=== PATIENT | male | born 1940 | race Caucasian/White ===

== ENCOUNTER 2021-06-21 12:09 | Inpatient (IN) | payer MEDICARE, BC ==
[2021-06-21] MEDS: Sodium Chloride 0.9% 10 ML Syringe FLUSH PRN ×2 (13:10→21:54)
[2021-06-21] MEDS ORDERED: Iopamidol 755 Mg/ML 100 ML Bottle IV ONE (13:12)
--- NOTE | 2021-06-21 15:05 | EDM.PDOC ---
ED HPI GENERAL MEDICAL PROBLEM - General Chief Complaint: Neuro Symptoms/Deficits Stated Complaint: STROKE SYMPTOMS Time Seen by Provider: 06/21/21 12:10 Source of Information: Reports: Patient History Limitations: Reports: No Limitations - History of Present Illness INITIAL COMMENTS - FREE TEXT/NARRATIVE: Patient is an 81 YO WM who presented to the ED because of slurred speech which started at 11 AM today. He was talking to his son who noticed his slurred speech and called 911. He also complains of bilateral lower extremity weakness which is nothing more than usual and he attributed it to his neuropathy. There is no headache, visual changes,motor or sensory deficits. He had a previous TIA without permanent neurologic sequelae. There is no cough or cold but have low grade fever today. No nausea,vomiting or diarrhea. - Related Data Allergies Allergy/AdvReac Type Severity Reaction Status Date / Time Penicillins Allergy Nausea Verified 06/21/21 12:37 Home Meds: Home Meds Apixaban [Eliquis] 2.5 mg BID 06/21/21 [History] Calcium Phosphate Dibas/Vit D3 [Vitamin L5-Bpnqmaq-Fucj Tablet] 1 tab BID 06/21/21 [History] Losartan/Hydrochlorothiazide [Losartan-HCTZ 100-25 MG] 1 tab DAILY 06/21/21 [History] allopurinoL [Zyloprim] 300 mg PO Q48H 06/21/21 [History] atorvaSTATin [Lipitor] 40 mg PO BEDTIME 06/21/21 [History] Past Medical History HEENT History: Reports: Impaired Vision, Other (See Below) Other HEENT History: 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, poor vision R eye Cardiovascular History: Reports: Blood Clots/VTE/DVT, High Cholesterol, Hypertension Gastrointestinal History: Reports: GERD Musculoskeletal History: Reports: Fracture, Gout Other Musculoskeletal History: R lower leg Neurological History: Reports: CVA 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 Endocrine/Metabolic History: Reports: Obesity/BMI 30+ Hematologic History: Reports: Anticoagulation Therapy, Other (See Below) Other Hematologic History: has had hi iron in past, has had autologous blood taken Oncologic (Cancer) History: Reports: Basal Cell Carcinoma, Squamous Cell Carcinoma Other Oncologic History: L arm skin CA - Infectious Disease History Infectious Disease History: Reports: Chicken Pox, Measles, Mumps - Past Surgical History Head Surgeries/Procedures: Reports: None HEENT Surgical History: Reports: Cataract Surgery, Tonsillectomy Other HEENT Surgeries/Procedures: bilat cataract GI Surgical History: Reports: Colonoscopy Musculoskeletal Surgical History: Reports: None Oncologic Surgical History: Reports: Other (See Below) Other Oncologic Surgeries/Procedures: L arm biopsy Social & Family History - Family History Family Medical History: No Pertinent Family History - Tobacco Use Tobacco Use Status *Q: Former Tobacco User Years of Tobacco use: 8 Used Tobacco, but Quit: Yes Month/Year Tobacco Last Used: 1965 - Caffeine Use Caffeine Use: Reports: None - Recreational Drug Use Recreational Drug Use: No ED ROS GENERAL - Review of Systems Review Of Systems: See Below Constitutional: Reports: Fever, Weakness HEENT: Reports: No Symptoms Respiratory: Reports: No Symptoms Cardiovascular: Reports: No Symptoms Endocrine: Reports: No Symptoms GI/Abdominal: Reports: No Symptoms : Reports: No Symptoms Musculoskeletal: Reports: No Symptoms Skin: Reports: No Symptoms Neurological: Reports: Weakness, Change in Speech Psychiatric: Reports: No Symptoms Hematologic/Lymphatic: Reports: No Symptoms ED EXAM, NEURO - Physical Exam Exam: See Below Exam Limited By: No Limitations General Appearance: Alert, No Apparent Distress Eye Exam: Bilateral Eye: PERRL Ears: Normal External Exam, Normal Canal Nose: Normal Inspection, Normal Mucosa, No Blood Throat/Mouth: Normal Inspection, Normal Lips, Normal Teeth Head Exam: Atraumatic, Normocephalic Neck: Normal Inspection, Supple, Non-Tender, Full Range of Motion Respiratory/Chest: No Respiratory Distress, Lungs Clear, Normal Breath Sounds, No Accessory Muscle Use, Chest Non-Tender Cardiovascular: Normal Peripheral Pulses, Regular Rate, Rhythm, No Edema, No Gallop, No JVD, No Murmur, No Rub GI/Abdominal: Normal Bowel Sounds, Soft, Non-Tender, No Organomegaly, No Distention, No Abnormal Bruit, No Mass Neurological: Alert, Normal Mood/Affect, Normal Dorsiflexion, CN II-XII Intact, Normal Plantar Flexion, Normal Gait, Normal Reflexes, No Motor/Sensory Deficits, Oriented x 3, Other (mild slurring of speech) #1 Interpretation EKG Date: 06/21/21 Time: 12:17 Rhythm: Other (Sinus Tach) Rate (Beats/Min): 100 [place]: Normal P-Wave: Present QRS: Normal ST-T: Normal QT: Normal IA/PQ Interval: 245 Comparison: NA - No Prior EKG EKG Interpretation Comments: Sinus Tach LAFB Prolonged IA interval Course - Vital Signs Text/Narrative:: Lab/EKG/CXR, Head and neck CTA result was reviewed and discussed with patient and his son Roc Neurology consult with Dr Negrete-stroke Neuro at [facility] who recommended for patient to be admitted to observation, echo,MRI/MRA-brain, start on Asa 325 mg daily and Lipitor 40 mg daily. Covid-positive Code Status-DNR/DNI Last Recorded V/S: Last Vital Signs Temp 37.3 C 06/22/21 07:50 Pulse 91 06/22/21 07:50 Resp 20 06/22/21 07:50 BP 141/85 H 06/22/21 07:50 Pulse Ox 95 06/22/21 07:50 - Orders/Labs/Meds Orders: Active Orders 24 hr Category Date Time Status Ang Head [CT] Stat Exams 06/21/21 13:07 Taken Ang Neck [CT] Stat Exams 06/21/21 13:08 Taken Head wo Cont [CT] Stat Exams 06/21/21 12:24 Taken Sodium Chloride 0.9% [Saline Flush] Med 06/21/21 12:24 Active 10 ml FLUSH ASDIRECTED PRN Isolation [COMM] Routine Oth 06/21/21 14:00 Ordered Saline Lock Insert [OM.PC] Routine Oth 06/21/21 12:24 Ordered EKG 12 Lead [EK] Routine Ther 06/21/21 12:24 Stop Req Medication Orders Acetaminophen (Acetaminophen 325 Mg Tab) 650 mg PO Q6H PRN PRN Reason: Pain/Fever Last Admin: 06/22/21 04:45 Dose: 650 mg Documented by: Admin: 06/21/21 21:53 Dose: 650 mg Documented by: FREDRICK Allopurinol (Allopurinol 300 Mg Tab) 300 mg PO Q48H NORMA Aspirin (Aspirin 325 Mg Tab.Ec) 325 mg PO DAILY NORMA Last Admin: 06/22/21 08:36 Dose: 325 mg Documented by: LEISA Atorvastatin Calcium (Atorvastatin 40 Mg Tab *Ptom) 40 mg PO BEDTIME NORMA Last Admin: 06/21/21 20:52 Dose: 40 mg Documented by: FREDRICK Bamlanivimab 700 mg/Etesevimab 1,400 mg/ Sodium Chloride 160 mls @ 310 mls/hr IV ONETIME ONE Stop: 06/22/21 13:30 Melatonin (Melatonin 3 Mg Tab) 6 mg PO BEDTIME NORMA (Apixaban [Eliquis] (2.5 Mg Tablet) *Ptom) 0 mg PO BID NORMA Last Admin: 06/22/21 08:36 Dose: 2.5 mg Documented by: Admin: 06/21/21 20:52 Dose: 2.5 mg Documented by: FREDRICK (Losartan/Hydrochlorothiazide [Losartan-Hctz 100- 25 Mg] *Ptom 1 tab PO DAILY NORMA Last Admin: 06/22/21 08:37 Dose: 1 tab Documented by: LEISA Sodium Chloride (Sodium Chloride 0.9% 10 Ml Syringe) 10 ml FLUSH ASDIRECTED PRN PRN Reason: Keep Vein Open Last Admin: 06/21/21 21:54 Dose: 10 ml Documented by: Admin: 06/21/21 13:10 Dose: 10 ml Documented by: TWAN Sodium Chloride (Sodium Chloride 0.9% 10 Ml Syringe) 30 ml FLUSH ASDIRECTED NORMA Labs: Laboratory Tests 06/21/21 06/21/21 06/21/21 Range/Units 12:37 12:40 12:40 WBC 5.9 (3.2-10.1) x10-3/uL RBC 4.14 (3.90-5.90) x10(6)uL Hgb 13.6 (12.9-17.7) g/dL Hct 39.9 (38.3-50.1) % MCV 96.3 (80.8-98.7) fL MCH 32.9 (27.0-33.3) pg MCHC 34.1 (28.7-35.3) g/dL RDW 14.5 (12.4-15.0) % Plt Count 161 (117-477) x10(3)uL MPV 6.4 L (6.7-11.0) fL Neut % (Auto) 81.3 H (40.3-71.8) % Lymph % (Auto) 7.0 L (15.8-45.3) % [place] % (Auto) 10.9 (5.5-15.2) % Eos % (Auto) 0.3 (0.1-6.8) % Baso % (Auto) 0.5 (0.3-3.8) % Neut # (Auto) 4.8 (1.7-6.9) x10-3/uL Lymph # (Auto) 0.4 L (0.5-4.5) x10-3/uL [place] # (Auto) 0.6 (0.0-1.2) x10-3/uL Eos # (Auto) 0.0 (0.0-0.6) x10-3/uL Baso # (Auto) 0.0 (0.0-0.3) x10-3/uL PT 11.2 H (9.0-11.1) sec INR 1.04 (1.00-1.24) APTT 28.2 (24.4-33.2) SECONDS Sodium (135-145) mmol/L Potassium (3.5-5.3) mmol/L Chloride (100-110) mmol/L Carbon Dioxide (21-32) mmol/L BUN (7-18) mg/dL Creatinine (0.70-1.30) mg/dL Est Cr Clr Drug Dosing mL/min Estimated GFR (MDRD) (>60) BUN/Creatinine Ratio (9-20) Glucose (80-116) mg/dL Calcium (8.6-10.2) mg/dL Total Bilirubin (0.1-1.3) mg/dL AST (5-25) IU/L ALT (12-36) U/L Alkaline Phosphatase (56-112) IU/L Troponin I (4.0-60.3) pg/mL Total Protein (6.0-8.0) g/dL Albumin (3.2-4.6) g/dL Globulin g/dL Albumin/Globulin Ratio SARS-CoV-2 RNA (SORAYA) Positive H (NEGATIVE) 06/21/21 06/21/21 Range/Units 12:40 12:40 WBC (3.2-10.1) x10-3/uL RBC (3.90-5.90) x10(6)uL Hgb (12.9-17.7) g/dL Hct (38.3-50.1) % MCV (80.8-98.7) fL MCH (27.0-33.3) pg MCHC (28.7-35.3) g/dL RDW (12.4-15.0) % Plt Count (117-477) x10(3)uL MPV (6.7-11.0) fL Neut % (Auto) (40.3-71.8) % Lymph % (Auto) (15.8-45.3) % [place] % (Auto) (5.5-15.2) % Eos % (Auto) (0.1-6.8) % Baso % (Auto) (0.3-3.8) % Neut # (Auto) (1.7-6.9) x10-3/uL Lymph # (Auto) (0.5-4.5) x10-3/uL [place] # (Auto) (0.0-1.2) x10-3/uL Eos # (Auto) (0.0-0.6) x10-3/uL Baso # (Auto) (0.0-0.3) x10-3/uL PT (9.0-11.1) sec INR (1.00-1.24) APTT (24.4-33.2) SECONDS Sodium 125 L (135-145) mmol/L Potassium 4.1 (3.5-5.3) mmol/L Chloride 91 L (100-110) mmol/L Carbon Dioxide 28 (21-32) mmol/L BUN 14 (7-18) mg/dL Creatinine 1.4 H (0.70-1.30) mg/dL Est Cr Clr Drug Dosing 45.97 mL/min Estimated GFR (MDRD) 49 L (>60) BUN/Creatinine Ratio 10.0 (9-20) Glucose 122 H (80-116) mg/dL Calcium 8.8 (8.6-10.2) mg/dL Total Bilirubin 1.9 H (0.1-1.3) mg/dL AST 38 H (5-25) IU/L ALT 42 H (12-36) U/L Alkaline Phosphatase 89 (56-112) IU/L Troponin I 11.6 (4.0-60.3) pg/mL Total Protein 6.6 (6.0-8.0) g/dL Albumin 3.3 (3.2-4.6) g/dL Globulin 3.3 g/dL Albumin/Globulin Ratio 1.0 SARS-CoV-2 RNA (SORAYA) (NEGATIVE) Meds: Medications Generic Name Dose Route Start Last Admin Trade Name Jony PRN Reason Stop Dose Admin Acetaminophen 650 mg 06/21/21 21:12 06/22/21 04:45 Acetaminophen 325 Mg Tab PO 650 mg Q6H PRN Administration Pain/Fever Allopurinol 300 mg 06/22/21 09:00 Allopurinol 300 Mg Tab PO Q48H NORMA Aspirin 325 mg 06/22/21 09:00 06/22/21 08:36 Aspirin 325 Mg Tab.Ec PO 325 mg DAILY NORMA Administration Atorvastatin Calcium 40 mg 06/21/21 21:00 06/21/21 20:52 Atorvastatin 40 Mg Tab *Ptom PO 40 mg BEDTIME NORMA Administration Bamlanivimab 700 mg/ 160 mls @ 310 mls/hr 06/22/21 13:00 Etesevimab 1,400 mg/ Sodium IV 06/22/21 13:30 Chloride ONETIME ONE Melatonin 6 mg 06/22/21 21:00 Melatonin 3 Mg Tab PO BEDTIME NORMA (Apixaban [Eliquis] 0 mg 06/21/21 21:00 06/22/21 08:36 2.5 Mg Tablet) *Ptom PO 2.5 mg BID NORMA Administration (Losartan/ 1 tab 06/22/21 09:00 06/22/21 08:37 Hydrochlorothiazide PO 1 tab [Losartan-Hctz 100- DAILY NORMA Administration 25 Mg] *Ptom Sodium Chloride 10 ml 06/21/21 12:24 06/21/21 21:54 Sodium Chloride 0.9% 10 Ml Syringe FLUSH 10 ml ASDIRECTED PRN Administration Keep Vein Open Sodium Chloride 30 ml 06/22/21 10:45 Sodium Chloride 0.9% 10 Ml Syringe FLUSH ASDIRECTED NORMA Discontinued Medications Generic Name Dose Route Start Last Admin Trade Name Jony PRN Reason Stop Dose Admin Aspirin 324 mg 06/21/21 15:14 06/21/21 15:45 Aspirin 81 Mg Tab.Chew PO 06/21/21 15:15 243 mg ONETIME ONE Administration Atorvastatin Calcium 40 mg 06/21/21 21:00 Atorvastatin 40 Mg Tab PO BEDTIME NORMA Iopamidol 90 ml 06/21/21 13:12 06/21/21 13:45 Iopamidol 755 Mg/Ml 100 Ml Bottle IV 06/21/21 13:13 90 ml . DIRECTED ONE Administration Departure - Departure Time of Disposition: 14:00 Disposition: Refer to Observation Condition: Good Clinical Impression: Cerebrovascular accident (CVA), COVID-19 virus infection, Hyponatremia - Discharge Information Sepsis Event Note (ED) - Evaluation Sepsis Screening Result: No Definite Risk - My Orders Last 24 Hours: My Active Orders 06/21/21 12:24 Head wo Cont [CT] Stat Sodium Chloride 0.9% [Saline Flush] 10 ml FLUSH ASDIRECTED PRN Saline Lock Insert [OM.PC] Routine EKG 12 Lead [EK] Routine 06/21/21 13:07 Ang Head [CT] Stat 06/21/21 13:08 Ang Neck [CT] Stat 06/21/21 14:00 Isolation [COMM] Routine - Assessment/Plan Last 24 Hours: My Active Orders 06/21/21 12:24 Head wo Cont [CT] Stat Sodium Chloride 0.9% [Saline Flush] 10 ml FLUSH ASDIRECTED PRN Saline Lock Insert [OM.PC] Routine EKG 12 Lead [EK] Routine 06/21/21 13:07 Ang Head [CT] Stat 06/21/21 13:08 Ang Neck [CT] Stat 06/21/21 14:00 Isolation [COMM] Routine
[2021-06-21] MEDS ORDERED: Aspirin 81 MG Tab.Chew PO ONE (15:14)
--- NOTE | 2021-06-21 15:32 | PCM.HP.2 ---
H&P History of Present Illness - General Date of Service: 06/21/21 Admit Problem/Dx: Admission Diagnosis/Problem Admission Diagnosis/Problem CVA, Cerebrovascular accident Source of Information: Patient, Provider History Limitations: Reports: No Limitations - History of Present Illness Initial Comments - Free Text/Narative: Royer presented to ER with slurred speech that started at 11 am today, he was talking to his son who noticed change in speech and called EMS. He also has bilateral lower extremity weakness which is chronic and he attributed it to his neuropathy, he also fell last week and has large bruise to right elbow. No headache, visual changes, upper limb weakness, no facial droop. He had a previous TIA without deficits. No cough, runny nose or sore throat but have low grade fever today. No nausea, vomiting or diarrhea. No dysuria, has trouble starting and stopping, urine stream is weak, which is not new. History of Hypertension on Lipitor 40 mg bedtime, Atrial Fibrillation on Eliquis 5 mg bid. In ER, NIH score was 1, CT head was negative for stroke. Spoke with [facility] Dr Negrete who recommended CTA head and neck: head was negative, neck showed bilateral carotid stenosis, Dr Negrete advised to started on Aspirin 325 mg daily and Lipitor 40 mg bedtime and get MRI brain and Echo which can be done tomorrow. Dr Negrete also advised observation admission for TIA vs CVA. Covid screen came back positive. Influenza pending. On further questioning, Royer stated his son visited on Friday, 06/17, and then Friday night started having symptoms, he was checked and found to be positive. - Related Data Allergies/Adverse Reactions: Allergies Allergy/AdvReac Type Severity Reaction Status Date / Time Penicillins Allergy Nausea Verified 06/21/21 12:37 Home Medications: Home Meds Apixaban [Eliquis] 2.5 mg BID 06/21/21 [History] Calcium Phosphate Dibas/Vit D3 [Vitamin J6-Spducwq-Pwgv Tablet] 1 tab BID 06/21/21 [History] Losartan/Hydrochlorothiazide [Losartan-HCTZ 100-25 MG] 1 tab DAILY 06/21/21 [History] allopurinoL [Zyloprim] 300 mg PO Q48H 06/21/21 [History] atorvaSTATin [Lipitor] 40 mg PO BEDTIME 06/21/21 [History] Past Medical History HEENT History: Reports: Impaired Vision, Other (See Below) Other HEENT History: 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, poor vision R eye Cardiovascular History: Reports: Blood Clots/VTE/DVT, High Cholesterol, Hypertension Gastrointestinal History: Reports: GERD Musculoskeletal History: Reports: Fracture, Gout Other Musculoskeletal History: R lower leg Neurological History: Reports: CVA 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 Endocrine/Metabolic History: Reports: Obesity/BMI 30+ Hematologic History: Reports: Anticoagulation Therapy, Other (See Below) Other Hematologic History: has had hi iron in past, has had autologous blood taken Oncologic (Cancer) History: Reports: Basal Cell Carcinoma, Squamous Cell Carcinoma Other Oncologic History: L arm skin CA - Infectious Disease History Infectious Disease History: Reports: Chicken Pox, Measles, Mumps - Past Surgical History Head Surgeries/Procedures: Reports: None HEENT Surgical History: Reports: Cataract Surgery, Tonsillectomy Other HEENT Surgeries/Procedures: bilat cataract GI Surgical History: Reports: Colonoscopy Musculoskeletal Surgical History: Reports: None Oncologic Surgical History: Reports: Other (See Below) Other Oncologic Surgeries/Procedures: L arm biopsy Social & Family History - Family History Family Medical History: No Pertinent Family History - Tobacco Use Tobacco Use Status *Q: Former Tobacco User Years of Tobacco use: 8 Used Tobacco, but Quit: Yes Month/Year Tobacco Last Used: 1965 - Caffeine Use Caffeine Use: Reports: None - Recreational Drug Use Recreational Drug Use: No H&P Review of Systems - Review of Systems: Review Of Systems: Comprehensive ROS is negative, except as noted in HPI. Exam - Exam Exam: See Below - Vital Signs Vital Signs: Last Vital Signs Temp 99.5 F 06/21/21 12:10 Pulse 108 H 06/21/21 12:10 Resp 20 06/21/21 12:10 BP 171/98 H 06/21/21 12:10 Pulse Ox 96 06/21/21 12:10 Weight: 240 lb - Exam General: Alert, Oriented, Cooperative. No: Mild Distress HEENT: PERRLA, EOMI, Hearing Intact, Mucosa Moist & [place], Posterior Pharynx Clear Neck: Supple, Trachea Midline. No: Carotid Bruit Lungs: Clear to Auscultation, Normal Respiratory Effort Cardiovascular: Regular Rate, Irregular Rhythm GI/Abdominal Exam: Normal Bowel Sounds, Soft, Non-Tender, No Distention (Male) Exam: Deferred Rectal (Males) Exam: Deferred Extremities: No Pedal Edema, Normal Capillary Refill Peripheral Pulses: 2+: Radial (L), Radial (R), Posterior Tibial (L), Posterior Tibial (R), Dorsalis Pedis (L), Dorsalis Pedis (R) Skin: Warm, Dry, Intact, Ecchymosis (Large 10 cm to posterior right arm) Neurological: Cranial Nerves Intact, Strength Equal Bilateral (bilateral sausage canner 5/ 5), Normal Speech, Normal Tone. No: Sensation Intact (decreased in BLE, states chronic) Psychiatric: Normal Affect - Patient Data Lab Results Last 24 hrs: Laboratory Results - last 24 hr 06/21/21 06/21/21 06/21/21 Range/Units 12:37 12:40 12:40 WBC 5.9 (3.2-10.1) x10-3/uL RBC 4.14 (3.90-5.90) x10(6)uL Hgb 13.6 (12.9-17.7) g/dL Hct 39.9 (38.3-50.1) % MCV 96.3 (80.8-98.7) fL MCH 32.9 (27.0-33.3) pg MCHC 34.1 (28.7-35.3) g/dL RDW 14.5 (12.4-15.0) % Plt Count 161 (117-477) x10(3)uL MPV 6.4 L (6.7-11.0) fL Neut % (Auto) 81.3 H (40.3-71.8) % Lymph % (Auto) 7.0 L (15.8-45.3) % [place] % (Auto) 10.9 (5.5-15.2) % Eos % (Auto) 0.3 (0.1-6.8) % Baso % (Auto) 0.5 (0.3-3.8) % Neut # (Auto) 4.8 (1.7-6.9) x10-3/uL Lymph # (Auto) 0.4 L (0.5-4.5) x10-3/uL [place] # (Auto) 0.6 (0.0-1.2) x10-3/uL Eos # (Auto) 0.0 (0.0-0.6) x10-3/uL Baso # (Auto) 0.0 (0.0-0.3) x10-3/uL PT 11.2 H (9.0-11.1) sec INR 1.04 (1.00-1.24) APTT 28.2 (24.4-33.2) SECONDS Sodium (135-145) mmol/L Potassium (3.5-5.3) mmol/L Chloride (100-110) mmol/L Carbon Dioxide (21-32) mmol/L BUN (7-18) mg/dL Creatinine (0.70-1.30) mg/dL Est Cr Clr Drug Dosing mL/min Estimated GFR (MDRD) (>60) BUN/Creatinine Ratio (9-20) Glucose (80-116) mg/dL Calcium (8.6-10.2) mg/dL Total Bilirubin (0.1-1.3) mg/dL AST (5-25) IU/L ALT (12-36) U/L Alkaline Phosphatase (56-112) IU/L Troponin I (4.0-60.3) pg/mL Total Protein (6.0-8.0) g/dL Albumin (3.2-4.6) g/dL Globulin g/dL Albumin/Globulin Ratio SARS-CoV-2 RNA (SORAYA) Positive H (NEGATIVE) 06/21/21 06/21/21 Range/Units 12:40 12:40 WBC (3.2-10.1) x10-3/uL RBC (3.90-5.90) x10(6)uL Hgb (12.9-17.7) g/dL Hct (38.3-50.1) % MCV (80.8-98.7) fL MCH (27.0-33.3) pg MCHC (28.7-35.3) g/dL RDW (12.4-15.0) % Plt Count (117-477) x10(3)uL MPV (6.7-11.0) fL Neut % (Auto) (40.3-71.8) % Lymph % (Auto) (15.8-45.3) % [place] % (Auto) (5.5-15.2) % Eos % (Auto) (0.1-6.8) % Baso % (Auto) (0.3-3.8) % Neut # (Auto) (1.7-6.9) x10-3/uL Lymph # (Auto) (0.5-4.5) x10-3/uL [place] # (Auto) (0.0-1.2) x10-3/uL Eos # (Auto) (0.0-0.6) x10-3/uL Baso # (Auto) (0.0-0.3) x10-3/uL PT (9.0-11.1) sec INR (1.00-1.24) APTT (24.4-33.2) SECONDS Sodium 125 L (135-145) mmol/L Potassium 4.1 (3.5-5.3) mmol/L Chloride 91 L (100-110) mmol/L Carbon Dioxide 28 (21-32) mmol/L BUN 14 (7-18) mg/dL Creatinine 1.4 H (0.70-1.30) mg/dL Est Cr Clr Drug Dosing 45.97 mL/min Estimated GFR (MDRD) 49 L (>60) BUN/Creatinine Ratio 10.0 (9-20) Glucose 122 H (80-116) mg/dL Calcium 8.8 (8.6-10.2) mg/dL Total Bilirubin 1.9 H (0.1-1.3) mg/dL AST 38 H (5-25) IU/L ALT 42 H (12-36) U/L Alkaline Phosphatase 89 (56-112) IU/L Troponin I 11.6 (4.0-60.3) pg/mL Total Protein 6.6 (6.0-8.0) g/dL Albumin 3.3 (3.2-4.6) g/dL Globulin 3.3 g/dL Albumin/Globulin Ratio 1.0 SARS-CoV-2 RNA (SORAYA) (NEGATIVE) Result Diagrams: 06/21/21 12:40 06/21/21 12:40 Sepsis Event Note - Evaluation Sepsis Screening Result: No Definite Risk - Focused Exam Vital Signs: Vital Signs Temp Pulse Resp BP Pulse Ox 06/21/21 12:10 99.5 F 108 H 20 171/98 H 96 *Q Meaningful Use (ADM) - VTE *Q VTE Mechanical Contraindications *Q: At Risk for Falls - VTE Risk Assess *Q Each Risk Factor Represents 1 Point: Obesity ( BMI > 25 kg/m2) Total Score 1 Point Risk Factors: 1 Each Risk Factor Represents 2 Points: None Total Score 2 Point Risk Factors: 0 Each Risk Factor Represents 3 Points: Age 75 Years or Greater Total Score 3 Point Risk Factors: 3 Each Risk Factor Represents 5 Points: None Total Score 5 Point Risk Factors: 0 Venous Thromboembolism Risk Factor Score *Q: 4 - Problem List (1) Slurred speech SNOMED Code(s): 174474422 ICD Code: R47.81 - SLURRED SPEECH Status: Acute Current Visit: Yes (2) TIA (transient ischemic attack) SNOMED Code(s): 336439993 ICD Code: G45.9 - TRANSIENT CEREBRAL ISCHEMIC ATTACK, UNSPECIFIED Status: Acute Current Visit: Yes (3) SARS-CoV-2 positive SNOMED Code(s): 1825949282267343 ICD Code: U07.1 - COVID-19 Status: Acute Current Visit: Yes (4) Hyponatremia SNOMED Code(s): 70064744 ICD Code: E87.1 - HYPO-OSMOLALITY AND HYPONATREMIA Status: Chronic Current Visit: Yes (5) Neuropathy SNOMED Code(s): 825079770 ICD Code: G62.9 - POLYNEUROPATHY, UNSPECIFIED Status: Chronic Current Visit: Yes (6) Atrial fibrillation SNOMED Code(s): 42749727 ICD Code: I48.91 - UNSPECIFIED ATRIAL FIBRILLATION Status: Chronic Current Visit: Yes (7) Hypertension SNOMED Code(s): 04388609 ICD Code: I10 - ESSENTIAL (PRIMARY) HYPERTENSION Status: Chronic Current Visit: Yes (8) Gout SNOMED Code(s): 18242363 ICD Code: M10.9 - GOUT, UNSPECIFIED Status: Chronic Current Visit: Yes Problem List Initiated/Reviewed/Updated: Yes Orders Last 24hrs: Active Orders 24 hr Category Date Time Status Patient Status [ADT] Routine ADT 06/21/21 15:19 Ordered Oxygen Therapy [RC] PRN Care 06/21/21 15:19 Ordered Up With Assistance [RC] ASDIRECTED Care 06/21/21 15:19 Ordered Up to Chair [RC] ASDIRECTED Care 06/21/21 15:19 Ordered VTE/DVT Education [RC] Per Unit Routine Care 06/21/21 15:19 Ordered Vital Signs [RC] Q4H Care 06/21/21 15:19 Ordered OT Evaluation and Treatment [CONS] Routine Cons 06/21/21 15:19 Ordered PT Evaluation and Treatment [CONS] Routine Cons 06/21/21 15:19 Ordered Heart Healthy Diet [DIET] Diet 06/21/21 Dinner Ordered Ang Head [CT] Stat Exams 06/21/21 13:07 Taken Ang Neck [CT] Stat Exams 06/21/21 13:08 Taken Brain wo Cont [MR] Routine Exams 06/22/21 06:00 Ordered Chest 1V Frontal [CR] Stat Exams 06/21/21 12:24 Taken Echo Comp wo Cont [US] Routine Exams 06/22/21 06:00 Ordered Head wo Cont [CT] Stat Exams 06/21/21 12:24 Taken BASIC METABOLIC PANEL,BMP [CHEM] Routine Lab 06/22/21 06:00 Ordered INFLUENZA A+B AG SCREEN [RM] Stat Lab 06/21/21 15:00 Received LIPID PANEL [CHEM] Routine Lab 06/22/21 06:00 Ordered Apixaban [Eliquis] Med 06/21/21 21:00 Ordered 2.5 mg PO BID Aspirin [Ecotrin] Med 06/22/21 09:00 Ordered 325 mg PO DAILY Losartan/Hydrochlorothiazide [Losartan-HCTZ 100-25 MG] Med 06/22/21 09:00 Ordered 1 tab PO DAILY Sodium Chloride 0.9% [Saline Flush] Med 06/21/21 12:24 Active 10 ml FLUSH ASDIRECTED PRN allopurinoL [Zyloprim] Med 06/21/21 15:30 Ordered 300 mg PO Q48H atorvaSTATin [Lipitor] Med 06/21/21 21:00 Ordered 40 mg PO BEDTIME Isolation [COMM] Routine Oth 06/21/21 14:00 Ordered Saline Lock Insert [OM.PC] Routine Oth 06/21/21 12:24 Ordered Resuscitation Status Routine Resus Stat 06/21/21 15:19 Ordered EKG 12 Lead [EK] Routine Ther 06/21/21 12:24 Stop Req Medication Orders Allopurinol (Allopurinol 300 Mg Tab) 300 mg PO Q48H NORMA Aspirin (Aspirin 325 Mg Tab.Ec) 325 mg PO DAILY NORMA Atorvastatin Calcium (Atorvastatin 40 Mg Tab) 40 mg PO BEDTIME NORMA Non-Formulary Medication (Apixaban [Eliquis]) 2.5 mg PO BID NORMA Non-Formulary Medication (Losartan/Hydrochlorothiazide [Losartan-Hctz 100-25 Mg]) 1 tab PO DAILY NORMA Sodium Chloride (Sodium Chloride 0.9% 10 Ml Syringe) 10 ml FLUSH ASDIRECTED PRN PRN Reason: Keep Vein Open Last Admin: 06/21/21 13:10 Dose: 10 ml Documented by: TWAN Assessment/Plan Comment:: 1. Admit for observation for TIA vs CVA, Hyponatremia, Covid positive. 2. TIA/slurred speech: vs CVA. Hx of atrial fibrillation on Eliquis. Occurred today at 11 am, resolved in ER. Dr. Negrete, [facility] advised CTA head/neck which was negative for stroke, bilateral carotid stenosis. MRI brain and echo tomorrow. Aspirin 325 given in ER, recommended Aspirin 325 mg daily in addition to Lipitor 40 mg bedtime, so will continue his home medications. Lipid panel, BMP tomorrow. 3. Covid Positive: low grade fever, Oxygen 96% on room air. Positive contact on 06/17. He is vaccinated. Droplet isolation. Influenza pending. 4. Hyponatremia: 125, last sodium in clinic was 133 2 months ago and 128 a year ago. He is on Losartan/HCTZ. 5. Fall/neuropathy: PT/OT evaluate & treat. 6. Atrial fibrillation/Hx of DVT: Eliquis 5 mg bid. 7. Diet: Heart Healthy. 8. Activity: up with assistance & chair. 9. DVT prophylaxis: Eliquis & Aspirin. 10. CODE STATUS: DNR/DNI. 11. Discharge planning: anticipate 24-48 hours observation, discharge home with his . - Mortality Measure Prognosis:: Poor
--- NOTE | 2021-06-21 18:11 | CR ---
INDICATION: CVA, slurred speech. CHEST, ONE VIEW: An AP portable upright view of the chest was obtained 06/21/21 - no comparisons. The heart appears prominent in size, but is not grossly enlarged. The aorta is tortuous with minimal calcification near the arch. Overlying EKG leads are noted. Somewhat heavy markings are noted, most likely fibrotic in nature, without consolidating pneumonia or effusion identified. IMPRESSION: No acute process. MTDD
[2021-06-21] MEDS: atorvaSTATin 40 MG Tab *PTOM PO SCH (20:52)
[2021-06-21] MEDS: APIXABAN 2.5 MG PO SCH (20:52)
[2021-06-21] MEDS ORDERED: atorvaSTATin 40 MG Tab PO SCH (21:00)
[2021-06-21] MEDS: Acetaminophen 325 MG Tab PO PRN (21:53)
[2021-06-22] MEDS: Acetaminophen 325 MG Tab PO PRN ×3 (04:45→21:20)
[2021-06-22] MEDS: Aspirin 325 MG Tab.EC PO SCH (08:36)
[2021-06-22] MEDS: APIXABAN 2.5 MG PO SCH ×2 (08:36→20:01)
[2021-06-22] MEDS: LOSARTAN PO SCH (08:37)
[2021-06-22] MEDS: HYDROCHLOROTHIAZIDE PO SCH (08:37)
--- NOTE | 2021-06-22 09:20 | PCM.PN ---
- General Info Date of Service: 06/22/21 Subjective Update: Royer was admitted last night for concern for stroke. He presented to the ER with weakness and some speech disturbance. Initial workup for brain was negative, however in consultation with neurology, he has an MRI that this morning. He complains of insomnia, decreased appetite and strength. He needs 2- person support ambulation. - Review of Systems General: Reports: Weakness HEENT: Reports: No Symptoms Pulmonary: Reports: No Symptoms Cardiovascular: Reports: No Symptoms Gastrointestinal: Reports: No Symptoms Genitourinary: Reports: No Symptoms Musculoskeletal: Reports: No Symptoms Skin: Reports: No Symptoms Neurological: Reports: No Symptoms Psychiatric: Reports: No Symptoms - Patient Data Vitals - Most Recent: Last Vital Signs Temp 98.8 F 06/22/21 05:15 Pulse 83 06/22/21 04:00 Resp 16 06/22/21 04:00 BP 159/93 H 06/22/21 04:00 Pulse Ox 95 06/22/21 04:00 Weight - Most Recent: 100.062 kg Lab Results Last 24 Hours: Laboratory Results - last 24 hr 06/21/21 06/21/21 06/21/21 Range/Units 12:37 12:40 12:40 WBC 5.9 (3.2-10.1) x10-3/uL RBC 4.14 (3.90-5.90) x10(6)uL Hgb 13.6 (12.9-17.7) g/dL Hct 39.9 (38.3-50.1) % MCV 96.3 (80.8-98.7) fL MCH 32.9 (27.0-33.3) pg MCHC 34.1 (28.7-35.3) g/dL RDW 14.5 (12.4-15.0) % Plt Count 161 (117-477) x10(3)uL MPV 6.4 L (6.7-11.0) fL Neut % (Auto) 81.3 H (40.3-71.8) % Lymph % (Auto) 7.0 L (15.8-45.3) % [place] % (Auto) 10.9 (5.5-15.2) % Eos % (Auto) 0.3 (0.1-6.8) % Baso % (Auto) 0.5 (0.3-3.8) % Neut # (Auto) 4.8 (1.7-6.9) x10-3/uL Lymph # (Auto) 0.4 L (0.5-4.5) x10-3/uL [place] # (Auto) 0.6 (0.0-1.2) x10-3/uL Eos # (Auto) 0.0 (0.0-0.6) x10-3/uL Baso # (Auto) 0.0 (0.0-0.3) x10-3/uL PT 11.2 H (9.0-11.1) sec INR 1.04 (1.00-1.24) APTT 28.2 (24.4-33.2) SECONDS Sodium (135-145) mmol/L Potassium (3.5-5.3) mmol/L Chloride (100-110) mmol/L Carbon Dioxide (21-32) mmol/L BUN (7-18) mg/dL Creatinine (0.70-1.30) mg/dL Est Cr Clr Drug Dosing mL/min Estimated GFR (MDRD) (>60) BUN/Creatinine Ratio (9-20) Glucose (80-116) mg/dL Calcium (8.6-10.2) mg/dL Total Bilirubin (0.1-1.3) mg/dL AST (5-25) IU/L ALT (12-36) U/L Alkaline Phosphatase (56-112) IU/L Troponin I (4.0-60.3) pg/mL Total Protein (6.0-8.0) g/dL Albumin (3.2-4.6) g/dL Globulin g/dL Albumin/Globulin Ratio Triglycerides (15-150) mg/dL Cholesterol (50-200) mg/dL LDL Cholesterol Direct (60-130) mg/dL HDL Cholesterol (40-75) mg/dL Cholesterol/HDL Ratio (0-5) SARS-CoV-2 RNA (SORAYA) Positive H (NEGATIVE) 06/21/21 06/21/21 06/22/21 Range/Units 12:40 12:40 06:30 WBC (3.2-10.1) x10-3/uL RBC (3.90-5.90) x10(6)uL Hgb (12.9-17.7) g/dL Hct (38.3-50.1) % MCV (80.8-98.7) fL MCH (27.0-33.3) pg MCHC (28.7-35.3) g/dL RDW (12.4-15.0) % Plt Count (117-477) x10(3)uL MPV (6.7-11.0) fL Neut % (Auto) (40.3-71.8) % Lymph % (Auto) (15.8-45.3) % [place] % (Auto) (5.5-15.2) % Eos % (Auto) (0.1-6.8) % Baso % (Auto) (0.3-3.8) % Neut # (Auto) (1.7-6.9) x10-3/uL Lymph # (Auto) (0.5-4.5) x10-3/uL [place] # (Auto) (0.0-1.2) x10-3/uL Eos # (Auto) (0.0-0.6) x10-3/uL Baso # (Auto) (0.0-0.3) x10-3/uL PT (9.0-11.1) sec INR (1.00-1.24) APTT (24.4-33.2) SECONDS Sodium 125 L 129 L (135-145) mmol/L Potassium 4.1 3.7 (3.5-5.3) mmol/L Chloride 91 L 92 L (100-110) mmol/L Carbon Dioxide 28 28 (21-32) mmol/L BUN 14 18 (7-18) mg/dL Creatinine 1.4 H 1.6 H (0.70-1.30) mg/dL Est Cr Clr Drug Dosing 45.97 40.23 mL/min Estimated GFR (MDRD) 49 L 42 L (>60) BUN/Creatinine Ratio 10.0 11.3 (9-20) Glucose 122 H 100 (80-116) mg/dL Calcium 8.8 8.5 L (8.6-10.2) mg/dL Total Bilirubin 1.9 H (0.1-1.3) mg/dL AST 38 H (5-25) IU/L ALT 42 H (12-36) U/L Alkaline Phosphatase 89 (56-112) IU/L Troponin I 11.6 (4.0-60.3) pg/mL Total Protein 6.6 (6.0-8.0) g/dL Albumin 3.3 (3.2-4.6) g/dL Globulin 3.3 g/dL Albumin/Globulin Ratio 1.0 Triglycerides 26 (15-150) mg/dL Cholesterol 79 (50-200) mg/dL LDL Cholesterol Direct 22 L (60-130) mg/dL HDL Cholesterol 60 (40-75) mg/dL Cholesterol/HDL Ratio 1.3 (0-5) SARS-CoV-2 RNA (SORAYA) (NEGATIVE) Arnie Results Last 24 Hours: Microbiology 06/21/21 15:00 Influenza Type A Antigen Screen - Final Nasopharyngeal Swab NEGATIVE INFLUENZA A VIRUS AG REFERENCE RANGE: NEGATIVE Influenza Type B Antigen Screen - Final NEGATIVE INFLUENZA B VIRUS AG REFERENCE RANGE: NEGATIVE Med Orders - Current: Current Medications Acetaminophen (Acetaminophen 325 Mg Tab) 650 mg PO Q6H PRN PRN Reason: Pain/Fever Last Admin: 06/22/21 04:45 Dose: 650 mg Documented by: Allopurinol (Allopurinol 300 Mg Tab) 300 mg PO Q48H [facility] Aspirin (Aspirin 325 Mg Tab.Ec) 325 mg PO DAILY [facility] Last Admin: 06/22/21 08:36 Dose: 325 mg Documented by: Atorvastatin Calcium (Atorvastatin 40 Mg Tab *Ptom) 40 mg PO BEDTIME [facility] Last Admin: 06/21/21 20:52 Dose: 40 mg Documented by: (Apixaban [Eliquis] (2.5 Mg Tablet) *Ptom) 0 mg PO BID [facility] Last Admin: 06/22/21 08:36 Dose: 2.5 mg Documented by: (Losartan/Hydrochlorothiazide [Losartan-Hctz 100- 25 Mg] *Ptom 1 tab PO DAILY [facility] Last Admin: 06/22/21 08:37 Dose: 1 tab Documented by: Sodium Chloride (Sodium Chloride 0.9% 10 Ml Syringe) 10 ml FLUSH ASDIRECTED PRN PRN Reason: Keep Vein Open Last Admin: 06/21/21 21:54 Dose: 10 ml Documented by: Discontinued Medications Aspirin (Aspirin 81 Mg Tab.Chew) 324 mg PO ONETIME ONE Stop: 06/21/21 15:15 Last Admin: 06/21/21 15:45 Dose: 243 mg Documented by: Atorvastatin Calcium (Atorvastatin 40 Mg Tab) 40 mg PO BEDTIME [facility] Iopamidol (Iopamidol 755 Mg/Ml 100 Ml Bottle) 90 ml IV . DIRECTED ONE Stop: 06/21/21 13:13 Last Admin: 06/21/21 13:45 Dose: 90 ml Documented by: - Exam General: Alert, Oriented HEENT: Pupils Equal Neck: Supple Lungs: Clear to Auscultation Cardiovascular: Regular Rate Neurological: No New Focal Deficit Psy/Mental Status: Alert - Patient Data Lab Results Last 24 hrs: Laboratory Results - last 24 hr 06/21/21 06/21/21 06/21/21 Range/Units 12:37 12:40 12:40 WBC 5.9 (3.2-10.1) x10-3/uL RBC 4.14 (3.90-5.90) x10(6)uL Hgb 13.6 (12.9-17.7) g/dL Hct 39.9 (38.3-50.1) % MCV 96.3 (80.8-98.7) fL MCH 32.9 (27.0-33.3) pg MCHC 34.1 (28.7-35.3) g/dL RDW 14.5 (12.4-15.0) % Plt Count 161 (117-477) x10(3)uL MPV 6.4 L (6.7-11.0) fL Neut % (Auto) 81.3 H (40.3-71.8) % Lymph % (Auto) 7.0 L (15.8-45.3) % [place] % (Auto) 10.9 (5.5-15.2) % Eos % (Auto) 0.3 (0.1-6.8) % Baso % (Auto) 0.5 (0.3-3.8) % Neut # (Auto) 4.8 (1.7-6.9) x10-3/uL Lymph # (Auto) 0.4 L (0.5-4.5) x10-3/uL [place] # (Auto) 0.6 (0.0-1.2) x10-3/uL Eos # (Auto) 0.0 (0.0-0.6) x10-3/uL Baso # (Auto) 0.0 (0.0-0.3) x10-3/uL PT 11.2 H (9.0-11.1) sec INR 1.04 (1.00-1.24) APTT 28.2 (24.4-33.2) SECONDS Sodium (135-145) mmol/L Potassium (3.5-5.3) mmol/L Chloride (100-110) mmol/L Carbon Dioxide (21-32) mmol/L BUN (7-18) mg/dL Creatinine (0.70-1.30) mg/dL Est Cr Clr Drug Dosing mL/min Estimated GFR (MDRD) (>60) BUN/Creatinine Ratio (9-20) Glucose (80-116) mg/dL Calcium (8.6-10.2) mg/dL Total Bilirubin (0.1-1.3) mg/dL AST (5-25) IU/L ALT (12-36) U/L Alkaline Phosphatase (56-112) IU/L Troponin I (4.0-60.3) pg/mL Total Protein (6.0-8.0) g/dL Albumin (3.2-4.6) g/dL Globulin g/dL Albumin/Globulin Ratio Triglycerides (15-150) mg/dL Cholesterol (50-200) mg/dL LDL Cholesterol Direct (60-130) mg/dL HDL Cholesterol (40-75) mg/dL Cholesterol/HDL Ratio (0-5) SARS-CoV-2 RNA (SORAYA) Positive H (NEGATIVE) 06/21/21 06/21/21 06/22/21 Range/Units 12:40 12:40 06:30 WBC (3.2-10.1) x10-3/uL RBC (3.90-5.90) x10(6)uL Hgb (12.9-17.7) g/dL Hct (38.3-50.1) % MCV (80.8-98.7) fL MCH (27.0-33.3) pg MCHC (28.7-35.3) g/dL RDW (12.4-15.0) % Plt Count (117-477) x10(3)uL MPV (6.7-11.0) fL Neut % (Auto) (40.3-71.8) % Lymph % (Auto) (15.8-45.3) % [place] % (Auto) (5.5-15.2) % Eos % (Auto) (0.1-6.8) % Baso % (Auto) (0.3-3.8) % Neut # (Auto) (1.7-6.9) x10-3/uL Lymph # (Auto) (0.5-4.5) x10-3/uL [place] # (Auto) (0.0-1.2) x10-3/uL Eos # (Auto) (0.0-0.6) x10-3/uL Baso # (Auto) (0.0-0.3) x10-3/uL PT (9.0-11.1) sec INR (1.00-1.24) APTT (24.4-33.2) SECONDS Sodium 125 L 129 L (135-145) mmol/L Potassium 4.1 3.7 (3.5-5.3) mmol/L Chloride 91 L 92 L (100-110) mmol/L Carbon Dioxide 28 28 (21-32) mmol/L BUN 14 18 (7-18) mg/dL Creatinine 1.4 H 1.6 H (0.70-1.30) mg/dL Est Cr Clr Drug Dosing 45.97 40.23 mL/min Estimated GFR (MDRD) 49 L 42 L (>60) BUN/Creatinine Ratio 10.0 11.3 (9-20) Glucose 122 H 100 (80-116) mg/dL Calcium 8.8 8.5 L (8.6-10.2) mg/dL Total Bilirubin 1.9 H (0.1-1.3) mg/dL AST 38 H (5-25) IU/L ALT 42 H (12-36) U/L Alkaline Phosphatase 89 (56-112) IU/L Troponin I 11.6 (4.0-60.3) pg/mL Total Protein 6.6 (6.0-8.0) g/dL Albumin 3.3 (3.2-4.6) g/dL Globulin 3.3 g/dL Albumin/Globulin Ratio 1.0 Triglycerides 26 (15-150) mg/dL Cholesterol 79 (50-200) mg/dL LDL Cholesterol Direct 22 L (60-130) mg/dL HDL Cholesterol 60 (40-75) mg/dL Cholesterol/HDL Ratio 1.3 (0-5) SARS-CoV-2 RNA (SORAYA) (NEGATIVE) Result Diagrams: 06/21/21 12:40 06/22/21 06:30 Arnie Results Last 24 hrs: Microbiology 06/21/21 15:00 Influenza Type A Antigen Screen - Final Nasopharyngeal Swab NEGATIVE INFLUENZA A VIRUS AG REFERENCE RANGE: NEGATIVE Influenza Type B Antigen Screen - Final NEGATIVE INFLUENZA B VIRUS AG REFERENCE RANGE: NEGATIVE Sepsis Event Note - Evaluation Sepsis Screening Result: No Definite Risk - Focused Exam Vital Signs: Vital Signs Temp Temp Pulse Resp BP Pulse Ox 06/22/21 05:15 98.8 F 06/22/21 04:45 99.8 F 06/22/21 04:00 99.9 F 83 16 159/93 H 95 06/22/21 00:00 98.9 F 97 16 130/82 96 06/21/21 22:23 98.9 F 06/21/21 21:53 99.9 F - Problem List & Annotations (1) H/O deep venous thrombosis SNOMED Code(s): 894037447 Code(s): Z86.718 - PERSONAL HISTORY OF OTHER VENOUS THROMBOSIS AND EMBOLISM Status: Acute Current Visit: Yes (2) Factor VIII (functional) deficiency Status: Acute Current Visit: Yes (3) On apixaban therapy SNOMED Code(s): 519559426 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 Status: Acute Current Visit: Yes (4) HLD (hyperlipidemia) SNOMED Code(s): 45255068 Code(s): E78.5 - HYPERLIPIDEMIA, UNSPECIFIED Status: Acute Current Visit: Yes (5) SARS-CoV-2 positive SNOMED Code(s): 3837957412160935 Code(s): U07.1 - COVID-19 Status: Acute Current Visit: Yes (6) Slurred speech SNOMED Code(s): 395017410 Code(s): R47.81 - SLURRED SPEECH Status: Acute Current Visit: Yes (7) Hypertension SNOMED Code(s): 93745430 Code(s): I10 - ESSENTIAL (PRIMARY) HYPERTENSION Status: Chronic Current Visit: Yes Qualifiers: Hypertension type: primary hypertension Qualified Code(s): I10 - Essential (primary) hypertension (8) Hyponatremia SNOMED Code(s): 85640595 Code(s): E87.1 - HYPO-OSMOLALITY AND HYPONATREMIA Status: Chronic Current Visit: Yes (9) Gout SNOMED Code(s): 36776555 Code(s): M10.9 - GOUT, UNSPECIFIED Status: Chronic Current Visit: Yes (10) Neuropathy SNOMED Code(s): 808428556 Code(s): G62.9 - POLYNEUROPATHY, UNSPECIFIED Status: Chronic Current Visit: Yes (11) COVID-19 SNOMED Code(s): 035537361 Code(s): U07.1 - COVID-19 Status: Acute Current Visit: Yes - Problem List Review Problem List Initiated/Reviewed/Updated: Yes - Plan Plan:: Echo is not obtainable today. We'll obtain an MRI and afternoon. In the meantime continue aspirin, and blood pressure control. Also spoken to pharmacy for possibly doing BAM infusion. For COVID infection. I will suggest transfer to inpatient, because is unable to ambulate and we need to rule out stroke.
[2021-06-22] MEDS ORDERED: Sodium Chloride 0.9% 10 ML Syringe FLUSH SCH (10:45)
[2021-06-22] MEDS ORDERED: Bamlanivimab 700 MG, ETESEVIMAB 1,400 MG in Sodium Chloride 0.9% 100 ML IV ONE (13:00)
[2021-06-22] MEDS: Sodium Chloride 0.9% 10 ML Syringe FLUSH PRN (13:45)
[2021-06-22] MEDS: Melatonin 3 MG Tab PO SCH (20:00)
[2021-06-22] MEDS: atorvaSTATin 40 MG Tab *PTOM PO SCH (20:02)
[2021-06-23] MEDS: Acetaminophen 325 MG Tab PO PRN ×2 (06:00→20:12)
[2021-06-23] MEDS: Aspirin 325 MG Tab.EC PO SCH (08:29)
[2021-06-23] MEDS: APIXABAN 2.5 MG PO SCH ×2 (08:30→20:09)
[2021-06-23] MEDS: LOSARTAN PO SCH (08:31)
[2021-06-23] MEDS: HYDROCHLOROTHIAZIDE PO SCH (08:31)
--- NOTE | 2021-06-23 09:17 | PCM.PN ---
- General Info Date of Service: 06/23/21 Subjective Update: Anurag complaints of generalized weakness, he now needs a Evita lift assist with transfers. He had an MRI of the brain that was negative for stroke. He also complains of insomnia despite melatonin last night. Functional Status: Reports: Pain Controlled, Tolerating Diet. Denies: Ambulating - Patient Data Vitals - Most Recent: Last Vital Signs Temp 99.1 F 06/23/21 06:00 Pulse 88 06/23/21 01:00 Resp 20 06/23/21 01:00 BP 91/56 L 06/23/21 01:00 Pulse Ox 97 06/23/21 01:00 Weight - Most Recent: 100.062 kg I&O - Last 24 Hours: Intake & Output 06/22/21 06/23/21 06/23/21 22:59 06:59 14:59 Output Total 300 Balance -300 Med Orders - Current: Current Medications Acetaminophen (Acetaminophen 325 Mg Tab) 650 mg PO Q6H PRN PRN Reason: Pain/Fever Last Admin: 06/23/21 06:00 Dose: 650 mg Documented by: Allopurinol (Allopurinol 300 Mg Tab) 300 mg PO Q48H [facility] Aspirin (Aspirin 325 Mg Tab.Ec) 325 mg PO DAILY [facility] Last Admin: 06/23/21 08:29 Dose: 325 mg Documented by: Atorvastatin Calcium (Atorvastatin 40 Mg Tab *Ptom) 40 mg PO BEDTIME [facility] Last Admin: 06/22/21 20:02 Dose: 40 mg Documented by: Melatonin (Melatonin 3 Mg Tab) 6 mg PO BEDTIME [facility] Last Admin: 06/22/21 20:00 Dose: 6 mg Documented by: (Apixaban [Eliquis] (2.5 Mg Tablet) *Ptom) 0 mg PO BID [facility] Last Admin: 06/23/21 08:30 Dose: 2.5 mg Documented by: (Losartan/Hydrochlorothiazide [Losartan-Hctz 100- 25 Mg] *Ptom 1 tab PO DAILY [facility] Last Admin: 06/23/21 08:31 Dose: 1 tab Documented by: Sodium Chloride (Sodium Chloride 0.9% 10 Ml Syringe) 10 ml FLUSH ASDIRECTED PRN PRN Reason: Keep Vein Open Last Admin: 06/22/21 13:45 Dose: 10 ml Documented by: Sodium Chloride (Sodium Chloride 0.9% 10 Ml Syringe) 30 ml FLUSH ASDIRECTED [facility] Last Admin: 06/22/21 14:15 Dose: 30 ml Documented by: Discontinued Medications Aspirin (Aspirin 81 Mg Tab.Chew) 324 mg PO ONETIME ONE Stop: 06/21/21 15:15 Last Admin: 06/21/21 15:45 Dose: 243 mg Documented by: Atorvastatin Calcium (Atorvastatin 40 Mg Tab) 40 mg PO BEDTIME [facility] Bamlanivimab 700 mg/Etesevimab 1,400 mg/ Sodium Chloride 160 mls @ 310 mls/hr IV ONETIME ONE Stop: 06/22/21 13:30 Last Admin: 06/22/21 13:45 Dose: 310 mls/hr Documented by: Iopamidol (Iopamidol 755 Mg/Ml 100 Ml Bottle) 90 ml IV . DIRECTED ONE Stop: 06/21/21 13:13 Last Admin: 06/21/21 13:45 Dose: 90 ml Documented by: - Exam General: Alert, Oriented, Cooperative HEENT: Pupils Equal Neck: Supple Lungs: Crackles Cardiovascular: Regular Rate GI/Abdominal Exam: Normal Bowel Sounds Extremities: Normal Inspection Neurological: No New Focal Deficit - Patient Data Result Diagrams: 06/21/21 12:40 06/22/21 06:30 Sepsis Event Note - Evaluation Sepsis Screening Result: No Definite Risk - Focused Exam Vital Signs: Vital Signs Temp Pulse Resp BP Pulse Ox 06/23/21 06:00 99.1 F 06/23/21 01:00 98.3 F 88 20 91/56 L 97 06/22/21 21:31 99.4 F - Problem List & Annotations (1) SARS-CoV-2 positive SNOMED Code(s): 7376208524349725 Code(s): U07.1 - COVID-19 Status: Acute Current Visit: Yes (2) H/O deep venous thrombosis SNOMED Code(s): 664950753 Code(s): Z86.718 - PERSONAL HISTORY OF OTHER VENOUS THROMBOSIS AND EMBOLISM Status: Acute Current Visit: Yes (3) Factor VIII (functional) deficiency Status: Acute Current Visit: Yes (4) On apixaban therapy SNOMED Code(s): 560402155 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 Status: Acute Current Visit: Yes (5) HLD (hyperlipidemia) SNOMED Code(s): 35307159 Code(s): E78.5 - HYPERLIPIDEMIA, UNSPECIFIED Status: Acute Current Visit: Yes (6) Slurred speech SNOMED Code(s): 649771995 Code(s): R47.81 - SLURRED SPEECH Status: Acute Current Visit: Yes (7) Hypertension SNOMED Code(s): 74580752 Code(s): I10 - ESSENTIAL (PRIMARY) HYPERTENSION Status: Chronic Current Visit: Yes Qualifiers: Hypertension type: primary hypertension Qualified Code(s): I10 - Essential (primary) hypertension (8) Hyponatremia SNOMED Code(s): 35367581 Code(s): E87.1 - HYPO-OSMOLALITY AND HYPONATREMIA Status: Chronic Current Visit: Yes (9) Gout SNOMED Code(s): 16905355 Code(s): M10.9 - GOUT, UNSPECIFIED Status: Chronic Current Visit: Yes (10) Neuropathy SNOMED Code(s): 010501588 Code(s): G62.9 - POLYNEUROPATHY, UNSPECIFIED Status: Chronic Current Visit: Yes (11) COVID-19 SNOMED Code(s): 906109929 Code(s): U07.1 - COVID-19 Status: Acute Current Visit: Yes - Problem List Review Problem List Initiated/Reviewed/Updated: Yes - My Orders Last 24 Hours: My Active Orders 06/22/21 10:45 Sodium Chloride 0.9% [Saline Flush] 30 ml FLUSH ASDIRECTED 06/22/21 21:00 Melatonin 6 mg PO BEDTIME 06/24/21 05:11 BASIC METABOLIC PANEL,BMP [CHEM] AM CBC WITH AUTO DIFF [HEME] AM - Plan Plan:: I think his symptoms is a combination of COVID 19 infection, neuropathy, hyponatremia. He got some confusion yesterday. I will give him Ambien for sleep, continue physical therapy and isolation.
[2021-06-23] MEDS: Zolpidem 5 MG Tab PO SCH (20:09)
[2021-06-23] MEDS: atorvaSTATin 40 MG Tab *PTOM PO SCH (20:10)
[2021-06-23] MEDS: Melatonin 3 MG Tab PO SCH (20:11)
[2021-06-24] MEDS: Aspirin 325 MG Tab.EC PO SCH (08:47)
[2021-06-24] MEDS: Acetaminophen 325 MG Tab PO PRN ×2 (08:49→20:56)
--- NOTE | 2021-06-24 08:49 | PCM.PN ---
- General Info Date of Service: 06/24/21 Subjective Update: Anurag complaints of generalized weakness, he now needs a Evita lift assist with transfers.Slept better last night Functional Status: Reports: Pain Controlled, Tolerating Diet - Review of Systems HEENT: Reports: No Symptoms Pulmonary: Reports: No Symptoms Cardiovascular: Reports: No Symptoms Gastrointestinal: Reports: Decreased Appetite Genitourinary: Reports: No Symptoms Musculoskeletal: Reports: No Symptoms - Patient Data Vitals - Most Recent: Last Vital Signs Temp 97.8 F 06/24/21 02:56 Pulse 81 06/24/21 02:56 Resp 20 06/24/21 02:56 BP 96/50 L 06/24/21 02:56 Pulse Ox 97 06/24/21 02:56 Weight - Most Recent: 100.062 kg Lab Results Last 24 Hours: Laboratory Results - last 24 hr 06/24/21 06/24/21 Range/Units 06:25 06:25 WBC 7.7 (3.2-10.1) x10-3/uL RBC 3.98 (3.90-5.90) x10(6)uL Hgb 13.3 (12.9-17.7) g/dL Hct 38.3 (38.3-50.1) % MCV 96.2 (80.8-98.7) fL MCH 33.5 H (27.0-33.3) pg MCHC 34.8 (28.7-35.3) g/dL RDW 15.4 H (12.4-15.0) % Plt Count 132 (117-477) x10(3)uL MPV 6.8 (6.7-11.0) fL Neut % (Auto) 57.7 (40.3-71.8) % Lymph % (Auto) 33.3 (15.8-45.3) % [place] % (Auto) 7.8 (5.5-15.2) % Eos % (Auto) 0.3 (0.1-6.8) % Baso % (Auto) 0.9 (0.3-3.8) % Neut # (Auto) 4.4 (1.7-6.9) x10-3/uL Lymph # (Auto) 2.6 (0.5-4.5) x10-3/uL [place] # (Auto) 0.6 (0.0-1.2) x10-3/uL Eos # (Auto) 0.0 (0.0-0.6) x10-3/uL Baso # (Auto) 0.1 (0.0-0.3) x10-3/uL Sodium 132 L (135-145) mmol/L Potassium 3.5 (3.5-5.3) mmol/L Chloride 96 L (100-110) mmol/L Carbon Dioxide 27 (21-32) mmol/L BUN 50 H D (7-18) mg/dL Creatinine 3.5 H* (0.70-1.30) mg/dL Est Cr Clr Drug Dosing 18.39 mL/min Estimated GFR (MDRD) 17 L (>60) BUN/Creatinine Ratio 14.3 (9-20) Glucose 98 (80-116) mg/dL Calcium 7.9 L (8.6-10.2) mg/dL Med Orders - Current: Current Medications Acetaminophen (Acetaminophen 325 Mg Tab) 650 mg PO Q6H PRN PRN Reason: Pain/Fever Last Admin: 06/23/21 20:12 Dose: 650 mg Documented by: Allopurinol (Allopurinol 300 Mg Tab) 300 mg PO Q48H [facility] Aspirin (Aspirin 325 Mg Tab.Ec) 325 mg PO DAILY [facility] Last Admin: 06/23/21 08:29 Dose: 325 mg Documented by: Atorvastatin Calcium (Atorvastatin 40 Mg Tab *Ptom) 40 mg PO BEDTIME [facility] Last Admin: 06/23/21 20:10 Dose: 40 mg Documented by: Sodium Chloride (Normal Saline) 1,000 mls @ 150 mls/hr IV ASDIRECTED [facility] Melatonin (Melatonin 3 Mg Tab) 6 mg PO BEDTIME [facility] Last Admin: 06/23/21 20:11 Dose: 6 mg Documented by: (Apixaban [Eliquis] (2.5 Mg Tablet) *Ptom) 0 mg PO BID [facility] Last Admin: 06/23/21 20:09 Dose: 2.5 mg Documented by: Sodium Chloride (Sodium Chloride 0.9% 10 Ml Syringe) 10 ml FLUSH ASDIRECTED PRN PRN Reason: Keep Vein Open Last Admin: 06/22/21 13:45 Dose: 10 ml Documented by: Sodium Chloride (Sodium Chloride 0.9% 10 Ml Syringe) 30 ml FLUSH ASDIRECTED [facility] Last Admin: 06/22/21 14:15 Dose: 30 ml Documented by: Zolpidem Tartrate (Zolpidem 5 Mg Tab) 5 mg PO BEDTIME [facility] Last Admin: 06/23/21 20:09 Dose: 5 mg Documented by: Discontinued Medications Aspirin (Aspirin 81 Mg Tab.Chew) 324 mg PO ONETIME ONE Stop: 06/21/21 15:15 Last Admin: 06/21/21 15:45 Dose: 243 mg Documented by: Atorvastatin Calcium (Atorvastatin 40 Mg Tab) 40 mg PO BEDTIME [facility] Bamlanivimab 700 mg/Etesevimab 1,400 mg/ Sodium Chloride 160 mls @ 310 mls/hr IV ONETIME ONE Stop: 06/22/21 13:30 Last Admin: 06/22/21 13:45 Dose: 310 mls/hr Documented by: Iopamidol (Iopamidol 755 Mg/Ml 100 Ml Bottle) 90 ml IV . DIRECTED ONE Stop: 06/21/21 13:13 Last Admin: 06/21/21 13:45 Dose: 90 ml Documented by: (Losartan/Hydrochlorothiazide [Losartan-Hctz 100- 25 Mg] *Ptom 1 tab PO DAILY [facility] Last Admin: 06/23/21 08:31 Dose: 1 tab Documented by: - Exam General: Alert, Oriented, Cooperative HEENT: Pupils Equal Neck: Supple Lungs: Clear to Auscultation Cardiovascular: Regular Rate - Patient Data Lab Results Last 24 hrs: Laboratory Results - last 24 hr 06/24/21 06/24/21 Range/Units 06:25 06:25 WBC 7.7 (3.2-10.1) x10-3/uL RBC 3.98 (3.90-5.90) x10(6)uL Hgb 13.3 (12.9-17.7) g/dL Hct 38.3 (38.3-50.1) % MCV 96.2 (80.8-98.7) fL MCH 33.5 H (27.0-33.3) pg MCHC 34.8 (28.7-35.3) g/dL RDW 15.4 H (12.4-15.0) % Plt Count 132 (117-477) x10(3)uL MPV 6.8 (6.7-11.0) fL Neut % (Auto) 57.7 (40.3-71.8) % Lymph % (Auto) 33.3 (15.8-45.3) % [place] % (Auto) 7.8 (5.5-15.2) % Eos % (Auto) 0.3 (0.1-6.8) % Baso % (Auto) 0.9 (0.3-3.8) % Neut # (Auto) 4.4 (1.7-6.9) x10-3/uL Lymph # (Auto) 2.6 (0.5-4.5) x10-3/uL [place] # (Auto) 0.6 (0.0-1.2) x10-3/uL Eos # (Auto) 0.0 (0.0-0.6) x10-3/uL Baso # (Auto) 0.1 (0.0-0.3) x10-3/uL Sodium 132 L (135-145) mmol/L Potassium 3.5 (3.5-5.3) mmol/L Chloride 96 L (100-110) mmol/L Carbon Dioxide 27 (21-32) mmol/L BUN 50 H D (7-18) mg/dL Creatinine 3.5 H* (0.70-1.30) mg/dL Est Cr Clr Drug Dosing 18.39 mL/min Estimated GFR (MDRD) 17 L (>60) BUN/Creatinine Ratio 14.3 (9-20) Glucose 98 (80-116) mg/dL Calcium 7.9 L (8.6-10.2) mg/dL Result Diagrams: 06/24/21 06:25 06/24/21 06:25 Sepsis Event Note - Evaluation Sepsis Screening Result: No Definite Risk - Focused Exam Vital Signs: Vital Signs Temp Pulse Resp BP Pulse Ox 06/24/21 02:56 97.8 F 81 20 96/50 L 97 06/24/21 00:00 16 - Problem List & Annotations (1) SARS-CoV-2 positive SNOMED Code(s): 5158197389065676 Code(s): U07.1 - COVID-19 Status: Acute Current Visit: Yes (2) H/O deep venous thrombosis SNOMED Code(s): 748685957 Code(s): Z86.718 - PERSONAL HISTORY OF OTHER VENOUS THROMBOSIS AND EMBOLISM Status: Acute Current Visit: Yes (3) Factor VIII (functional) deficiency Status: Acute Current Visit: Yes (4) On apixaban therapy SNOMED Code(s): 022860922 Code(s): Z79.01 - [employer]EM[employer] (CURRENT) USE OF 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 Status: Acute Current Visit: Yes (5) HLD (hyperlipidemia) SNOMED Code(s): 36334801 Code(s): E78.5 - HYPERLIPIDEMIA, UNSPECIFIED Status: Acute Current Visit: Yes (6) Slurred speech SNOMED Code(s): 340563058 Code(s): R47.81 - SLURRED SPEECH Status: Acute Current Visit: Yes (7) Hypertension SNOMED Code(s): 68091351 Code(s): I10 - ESSENTIAL (PRIMARY) HYPERTENSION Status: Chronic Current Visit: Yes Qualifiers: Hypertension type: primary hypertension Qualified Code(s): I10 - Essential (primary) hypertension (8) Hyponatremia SNOMED Code(s): 88371564 Code(s): E87.1 - HYPO-OSMOLALITY AND HYPONATREMIA Status: Chronic Current Visit: Yes (9) Gout SNOMED Code(s): 51196013 Code(s): M10.9 - GOUT, UNSPECIFIED Status: Chronic Current Visit: Yes (10) Neuropathy SNOMED Code(s): 341295916 Code(s): G62.9 - POLYNEUROPATHY, UNSPECIFIED Status: Chronic Current Visit: Yes (11) COVID-19 SNOMED Code(s): 590815212 Code(s): U07.1 - COVID-19 Status: Acute Current Visit: Yes (12) TENA (acute kidney injury) SNOMED Code(s): 35521858, 65214166 Code(s): N17.9 - ACUTE KIDNEY FAILURE, UNSPECIFIED Status: Acute Current Visit: Yes - Problem List Review Problem List Initiated/Reviewed/Updated: Yes - My Orders Last 24 Hours: My Active Orders 06/23/21 21:00 Zolpidem [Ambien] 5 mg PO BEDTIME 06/24/21 09:00 Sodium Chloride 0.9% @ 150 MLS/HR (1000ml) Sodium Chloride 0.9% [Normal Saline] 1,000 ml IV ASDIRECTED 11/01/21 05:11 BASIC METABOLIC PANEL,BMP [CHEM] AM CBC WITH AUTO DIFF [HEME] AM - Plan Plan:: His creatinine jumped to 3.5. His blood pressure is notably low this morning. I will discontinue lisinopril and hydrochlorothiazide, start IV fluid supplementation and repeat labs in the morning.
[2021-06-24] MEDS: Sodium Chloride 0.9% 1,000 ML IV SCH ×3 (09:26→23:37)
[2021-06-24] MEDS: Sodium Chloride 0.9% 10 ML Syringe FLUSH PRN (09:26)
[2021-06-24] MEDS: Allopurinol 300 MG Tab PO SCH (09:34)
[2021-06-24] MEDS: Apixaban 5 MG Tab PO SCH ×2 (09:34→20:55)
[2021-06-24] MEDS: APIXABAN 2.5 MG PO SCH (10:40)
[2021-06-24] MEDS ORDERED: Sodium Chloride 0.9% 1,000 ML IV ONE (16:44)
[2021-06-24] MEDS: Zolpidem 5 MG Tab PO SCH (20:55)
[2021-06-24] MEDS: Melatonin 3 MG Tab PO SCH (20:56)
[2021-06-24] MEDS: atorvaSTATin 40 MG Tab PO SCH (21:00)
[2021-06-25] MEDS: Sodium Chloride 0.9% 1,000 ML IV SCH (06:13)
--- NOTE | 2021-06-25 08:50 | PCM.PN ---
- General Info Date of Service: 06/25/21 Subjective Update: Anurag reports improved sleep, improve strength. He has no chest pain or shortness of breath. His blood pressure and urine output have improved over 24 hours. Functional Status: Reports: Pain Controlled, Tolerating Diet - Review of Systems HEENT: Reports: No Symptoms Pulmonary: Reports: No Symptoms Cardiovascular: Reports: No Symptoms Gastrointestinal: Reports: No Symptoms - Patient Data Vitals - Most Recent: Last Vital Signs Temp 97.8 F 06/25/21 04:43 Pulse 80 06/25/21 04:43 Resp 20 06/25/21 04:43 BP 119/66 06/25/21 04:43 Pulse Ox 98 06/25/21 04:43 Weight - Most Recent: 100.062 kg I&O - Last 24 Hours: Intake & Output 06/24/21 06/25/21 06/25/21 22:59 06:59 14:59 Intake Total 2225 1150 Output Total 200 400 Balance 2025 750 Lab Results Last 24 Hours: Laboratory Results - last 24 hr 06/25/21 06/25/21 06/25/21 Range/Units 06:35 06:35 06:35 WBC 5.4 (3.2-10.1) x10-3/uL RBC 3.40 L (3.90-5.90) x10(6)uL Hgb 11.3 L (12.9-17.7) g/dL Hct 33.1 L (38.3-50.1) % MCV 97.3 (80.8-98.7) fL MCH 33.2 (27.0-33.3) pg MCHC 34.1 (28.7-35.3) g/dL RDW 15.0 (12.4-15.0) % Plt Count 91 L (117-477) x10(3)uL MPV 6.9 (6.7-11.0) fL Neut % (Auto) 58.1 (40.3-71.8) % Lymph % (Auto) 29.4 (15.8-45.3) % [place] % (Auto) 9.9 (5.5-15.2) % Eos % (Auto) 1.5 (0.1-6.8) % Baso % (Auto) 1.1 (0.3-3.8) % Neut # (Auto) 3.1 (1.7-6.9) x10-3/uL Lymph # (Auto) 1.6 (0.5-4.5) x10-3/uL [place] # (Auto) 0.5 (0.0-1.2) x10-3/uL Eos # (Auto) 0.1 (0.0-0.6) x10-3/uL Baso # (Auto) 0.1 (0.0-0.3) x10-3/uL Sodium 134 L (135-145) mmol/L Potassium 3.9 (3.5-5.3) mmol/L Chloride 102 D (100-110) mmol/L Carbon Dioxide 26 (21-32) mmol/L BUN 45 H (7-18) mg/dL Creatinine 1.9 H (0.70-1.30) mg/dL Est Cr Clr Drug Dosing 33.88 mL/min Estimated GFR (MDRD) 34 L (>60) BUN/Creatinine Ratio 23.7 H (9-20) Glucose 93 (80-116) mg/dL Calcium 7.2 L (8.6-10.2) mg/dL Troponin I 147.2 H* (4.0-60.3) pg/mL NT-Pro-B Natriuret Pep 397 (<=450) pg/mL Med Orders - Current: Current Medications Acetaminophen (Acetaminophen 325 Mg Tab) 650 mg PO Q6H PRN PRN Reason: Pain/Fever Last Admin: 06/24/21 20:56 Dose: 650 mg Documented by: Allopurinol (Allopurinol 300 Mg Tab) 300 mg PO Q48H [facility] Last Admin: 06/24/21 09:34 Dose: 300 mg Documented by: Apixaban (Apixaban 5 Mg Tab) 2.5 mg PO BID [facility] Last Admin: 06/24/21 20:55 Dose: 2.5 mg Documented by: Aspirin (Aspirin 325 Mg Tab.Ec) 325 mg PO DAILY [facility] Last Admin: 06/24/21 08:47 Dose: 325 mg Documented by: Atorvastatin Calcium (Atorvastatin 40 Mg Tab) 40 mg PO BEDTIME [facility] Last Admin: 06/24/21 21:00 Dose: 40 mg Documented by: Melatonin (Melatonin 3 Mg Tab) 6 mg PO BEDTIME [facility] Last Admin: 06/24/21 20:56 Dose: 6 mg Documented by: Sodium Chloride (Sodium Chloride 0.9% 10 Ml Syringe) 10 ml FLUSH ASDIRECTED PRN PRN Reason: Keep Vein Open Last Admin: 06/24/21 09:26 Dose: 10 ml Documented by: Sodium Chloride (Sodium Chloride 0.9% 10 Ml Syringe) 30 ml FLUSH ASDIRECTED [facility] Last Admin: 06/22/21 14:15 Dose: 30 ml Documented by: Zolpidem Tartrate (Zolpidem 5 Mg Tab) 5 mg PO BEDTIME [facility] Last Admin: 06/24/21 20:55 Dose: 5 mg Documented by: Discontinued Medications Aspirin (Aspirin 81 Mg Tab.Chew) 324 mg PO ONETIME ONE Stop: 06/21/21 15:15 Last Admin: 06/21/21 15:45 Dose: 243 mg Documented by: Atorvastatin Calcium (Atorvastatin 40 Mg Tab) 40 mg PO BEDTIME [facility] Atorvastatin Calcium (Atorvastatin 40 Mg Tab *Ptom) 40 mg PO BEDTIME [facility] Last Admin: 06/23/21 20:10 Dose: 40 mg Documented by: Bamlanivimab 700 mg/Etesevimab 1,400 mg/ Sodium Chloride 160 mls @ 310 mls/hr IV ONETIME ONE Stop: 06/22/21 13:30 Last Admin: 06/22/21 13:45 Dose: 310 mls/hr Documented by: Sodium Chloride (Normal Saline) 1,000 mls @ 150 mls/hr IV ASDIRECTED [facility] Last Admin: 06/25/21 06:13 Dose: 150 mls/hr Documented by: Sodium Chloride (Normal Saline) 1,000 mls @ 999 mls/hr IV ONETIME ONE Stop: 06/24/21 17:44 Last Admin: 06/24/21 16:45 Dose: 999 mls/hr Documented by: Iopamidol (Iopamidol 755 Mg/Ml 100 Ml Bottle) 90 ml IV . DIRECTED ONE Stop: 06/21/21 13:13 Last Admin: 06/21/21 13:45 Dose: 90 ml Documented by: (Apixaban [Eliquis] (2.5 Mg Tablet) *Ptom) 0 mg PO BID [facility] Last Admin: 06/24/21 10:40 Dose: Not Given Documented by: (Losartan/Hydrochlorothiazide [Losartan-Hctz 100- 25 Mg] *Ptom 1 tab PO DAILY [facility] Last Admin: 06/23/21 08:31 Dose: 1 tab Documented by: - Exam General: Alert, Oriented HEENT: Pupils Equal Neck: Supple Lungs: Clear to Auscultation Back Exam: Normal Inspection Psy/Mental Status: Alert - Patient Data Lab Results Last 24 hrs: Laboratory Results - last 24 hr 06/25/21 06/25/21 06/25/21 Range/Units 06:35 06:35 06:35 WBC 5.4 (3.2-10.1) x10-3/uL RBC 3.40 L (3.90-5.90) x10(6)uL Hgb 11.3 L (12.9-17.7) g/dL Hct 33.1 L (38.3-50.1) % MCV 97.3 (80.8-98.7) fL MCH 33.2 (27.0-33.3) pg MCHC 34.1 (28.7-35.3) g/dL RDW 15.0 (12.4-15.0) % Plt Count 91 L (117-477) x10(3)uL MPV 6.9 (6.7-11.0) fL Neut % (Auto) 58.1 (40.3-71.8) % Lymph % (Auto) 29.4 (15.8-45.3) % [place] % (Auto) 9.9 (5.5-15.2) % Eos % (Auto) 1.5 (0.1-6.8) % Baso % (Auto) 1.1 (0.3-3.8) % Neut # (Auto) 3.1 (1.7-6.9) x10-3/uL Lymph # (Auto) 1.6 (0.5-4.5) x10-3/uL [place] # (Auto) 0.5 (0.0-1.2) x10-3/uL Eos # (Auto) 0.1 (0.0-0.6) x10-3/uL Baso # (Auto) 0.1 (0.0-0.3) x10-3/uL Sodium 134 L (135-145) mmol/L Potassium 3.9 (3.5-5.3) mmol/L Chloride 102 D (100-110) mmol/L Carbon Dioxide 26 (21-32) mmol/L BUN 45 H (7-18) mg/dL Creatinine 1.9 H (0.70-1.30) mg/dL Est Cr Clr Drug Dosing 33.88 mL/min Estimated GFR (MDRD) 34 L (>60) BUN/Creatinine Ratio 23.7 H (9-20) Glucose 93 (80-116) mg/dL Calcium 7.2 L (8.6-10.2) mg/dL Troponin I 147.2 H* (4.0-60.3) pg/mL NT-Pro-B Natriuret Pep 397 (<=450) pg/mL Result Diagrams: 06/25/21 06:35 06/25/21 06:35 Sepsis Event Note - Evaluation Sepsis Screening Result: No Definite Risk - Focused Exam Vital Signs: Vital Signs Temp Pulse Resp BP Pulse Ox 06/25/21 04:43 97.8 F 80 20 119/66 98 06/25/21 00:50 58 L 20 117/59 L 95 06/24/21 21:00 98 F 68 20 100/57 L 97 - Problem List & Annotations (1) SARS-CoV-2 positive SNOMED Code(s): 0071119847684759 Code(s): U07.1 - COVID-19 Status: Acute Current Visit: Yes (2) H/O deep venous thrombosis SNOMED Code(s): 760022065 Code(s): Z86.718 - PERSONAL HISTORY OF OTHER VENOUS THROMBOSIS AND EMBOLISM Status: Acute Current Visit: Yes (3) Factor VIII (functional) deficiency Status: Acute Current Visit: Yes (4) On apixaban therapy SNOMED Code(s): 883887258 Code(s): Z79.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 Status: Acute Current Visit: Yes (5) HLD (hyperlipidemia) SNOMED Code(s): 35694155 Code(s): E78.5 - HYPERLIPIDEMIA, UNSPECIFIED Status: Acute Current Visit: Yes (6) Slurred speech SNOMED Code(s): 197782308 Code(s): R47.81 - SLURRED SPEECH Status: Acute Current Visit: Yes (7) Hypertension SNOMED Code(s): 87342740 Code(s): I10 - ESSENTIAL (PRIMARY) HYPERTENSION Status: Chronic Current Visit: Yes Qualifiers: Hypertension type: primary hypertension Qualified Code(s): I10 - Essential (primary) hypertension (8) Hyponatremia SNOMED Code(s): 33103577 Code(s): E87.1 - HYPO-OSMOLALITY AND HYPONATREMIA Status: Chronic Current Visit: Yes (9) Gout SNOMED Code(s): 80225696 Code(s): M10.9 - GOUT, UNSPECIFIED Status: Chronic Current Visit: Yes (10) Neuropathy SNOMED Code(s): 163655902 Code(s): G62.9 - POLYNEUROPATHY, UNSPECIFIED Status: Chronic Current Visit: Yes (11) COVID-19 SNOMED Code(s): 307659800 Code(s): U07.1 - COVID-19 Status: Acute Current Visit: Yes (12) TENA (acute kidney injury) SNOMED Code(s): 90110608, 45960382 Code(s): N17.9 - ACUTE KIDNEY FAILURE, UNSPECIFIED Status: Acute Current Visit: Yes - Problem List Review Problem List Initiated/Reviewed/Updated: Yes - My Orders Last 24 Hours: My Active Orders 06/24/21 16:45 Intake and Output Strict [RC] 06,14,22 06/25/21 08:47 EKG Documentation Completion [RC] ASDIRECTED EKG 12 Lead [EK] Routine 06/26/21 05:11 BASIC METABOLIC PANEL,BMP [CHEM] AM CBC WITH AUTO DIFF [HEME] AM TROPONIN I [CHEM] AM - Plan Plan:: His creatinine has improved this morning. Troponin slightly high, possibly due to the creatinine. I recommend finishing the bag of fluid that he has, then Hep- Lock IV. Repeat labs the morning. Consult therapy. He'll come out of isolation on 01 July
[2021-06-25] MEDS: Aspirin 325 MG Tab.EC PO SCH (08:57)
[2021-06-25] MEDS: Apixaban 5 MG Tab PO SCH ×2 (08:58→20:59)
[2021-06-25] MEDS: Melatonin 3 MG Tab PO SCH (20:59)
[2021-06-25] MEDS: Zolpidem 5 MG Tab PO SCH (20:59)
[2021-06-25] MEDS: atorvaSTATin 40 MG Tab PO SCH (20:59)
[2021-06-25] MEDS: Sodium Chloride 0.9% 10 ML Syringe FLUSH PRN (21:02)
--- NOTE | 2021-06-26 09:11 | PCM.PN ---
- General Info Date of Service: 06/26/21 Subjective Update: Anurag's blood pressure has improved. He is eating and drinking. Dev is weekly needing to people support, therapy. He complains of insomnia despite 5 mg Ambien. He also complains of constipation. Functional Status: Reports: Pain Controlled, Tolerating Diet - Review of Systems General: Reports: No Symptoms HEENT: Reports: No Symptoms Pulmonary: Reports: No Symptoms Gastrointestinal: Reports: Constipation - Patient Data Vitals - Most Recent: Last Vital Signs Temp 97.8 F 06/26/21 08:15 Pulse 81 06/26/21 08:15 Resp 20 06/26/21 08:15 BP 171/103 H 06/26/21 08:15 Pulse Ox 97 06/26/21 08:15 Weight - Most Recent: 100.062 kg I&O - Last 24 Hours: Intake & Output 06/25/21 06/26/21 06/26/21 22:59 06:59 14:59 Intake Total 440 50 Output Total 250 450 Balance 190 -400 Lab Results Last 24 Hours: Laboratory Results - last 24 hr 06/26/21 06/26/21 06/26/21 Range/Units 06:30 06:30 06:30 WBC 5.4 (3.2-10.1) x10-3/uL RBC 3.41 L (3.90-5.90) x10(6)uL Hgb 11.4 L (12.9-17.7) g/dL Hct 33.0 L (38.3-50.1) % MCV 96.8 (80.8-98.7) fL MCH 33.3 (27.0-33.3) pg MCHC 34.4 (28.7-35.3) g/dL RDW 14.6 (12.4-15.0) % Plt Count 102 L (117-477) x10(3)uL MPV 6.7 (6.7-11.0) fL Neut % (Auto) 58.9 (40.3-71.8) % Lymph % (Auto) 29.9 (15.8-45.3) % [place] % (Auto) 8.9 (5.5-15.2) % Eos % (Auto) 1.7 (0.1-6.8) % Baso % (Auto) 0.6 (0.3-3.8) % Neut # (Auto) 3.2 (1.7-6.9) x10-3/uL Lymph # (Auto) 1.6 (0.5-4.5) x10-3/uL [place] # (Auto) 0.5 (0.0-1.2) x10-3/uL Eos # (Auto) 0.1 (0.0-0.6) x10-3/uL Baso # (Auto) 0.0 (0.0-0.3) x10-3/uL Sodium 135 (135-145) mmol/L Potassium 3.9 (3.5-5.3) mmol/L Chloride 103 (100-110) mmol/L Carbon Dioxide 28 (21-32) mmol/L BUN 27 H D (7-18) mg/dL Creatinine 1.2 (0.70-1.30) mg/dL Est Cr Clr Drug Dosing 53.64 mL/min Estimated GFR (MDRD) 58 L (>60) BUN/Creatinine Ratio 22.5 H (9-20) Glucose 101 (80-116) mg/dL Calcium 7.6 L (8.6-10.2) mg/dL Troponin I 108.8 H* (4.0-60.3) pg/mL Med Orders - Current: Current Medications Acetaminophen (Acetaminophen 325 Mg Tab) 650 mg PO Q6H PRN PRN Reason: Pain/Fever Last Admin: 06/24/21 20:56 Dose: 650 mg Documented by: Allopurinol (Allopurinol 300 Mg Tab) 300 mg PO Q48H [facility] Last Admin: 06/24/21 09:34 Dose: 300 mg Documented by: Apixaban (Apixaban 5 Mg Tab) 2.5 mg PO BID [facility] Last Admin: 06/25/21 20:59 Dose: 2.5 mg Documented by: Aspirin (Aspirin 325 Mg Tab.Ec) 325 mg PO DAILY [facility] Last Admin: 06/25/21 08:57 Dose: 325 mg Documented by: Atorvastatin Calcium (Atorvastatin 40 Mg Tab) 40 mg PO BEDTIME [facility] Last Admin: 06/25/21 20:59 Dose: 40 mg Documented by: Melatonin (Melatonin 3 Mg Tab) 6 mg PO BEDTIME [facility] Last Admin: 06/25/21 20:59 Dose: 6 mg Documented by: Sodium Chloride (Sodium Chloride 0.9% 10 Ml Syringe) 10 ml FLUSH ASDIRECTED PRN PRN Reason: Keep Vein Open Last Admin: 06/25/21 21:02 Dose: 10 ml Documented by: Sodium Chloride (Sodium Chloride 0.9% 10 Ml Syringe) 30 ml FLUSH ASDIRECTED [facility] Last Admin: 06/22/21 14:15 Dose: 30 ml Documented by: Zolpidem Tartrate (Zolpidem 10 Mg Tab) 10 mg PO BEDTIME [facility] Discontinued Medications Aspirin (Aspirin 81 Mg Tab.Chew) 324 mg PO ONETIME ONE Stop: 06/21/21 15:15 Last Admin: 06/21/21 15:45 Dose: 243 mg Documented by: Atorvastatin Calcium (Atorvastatin 40 Mg Tab) 40 mg PO BEDTIME [facility] Atorvastatin Calcium (Atorvastatin 40 Mg Tab *Ptom) 40 mg PO BEDTIME [facility] Last Admin: 06/23/21 20:10 Dose: 40 mg Documented by: Bamlanivimab 700 mg/Etesevimab 1,400 mg/ Sodium Chloride 160 mls @ 310 mls/hr IV ONETIME ONE Stop: 06/22/21 13:30 Last Admin: 06/22/21 13:45 Dose: 310 mls/hr Documented by: Sodium Chloride (Normal Saline) 1,000 mls @ 150 mls/hr IV ASDIRECTED [facility] Last Admin: 06/25/21 06:13 Dose: 150 mls/hr Documented by: Sodium Chloride (Normal Saline) 1,000 mls @ 999 mls/hr IV ONETIME ONE Stop: 06/24/21 17:44 Last Admin: 06/24/21 16:45 Dose: 999 mls/hr Documented by: Iopamidol (Iopamidol 755 Mg/Ml 100 Ml Bottle) 90 ml IV . DIRECTED ONE Stop: 06/21/21 13:13 Last Admin: 06/21/21 13:45 Dose: 90 ml Documented by: (Apixaban [Eliquis] (2.5 Mg Tablet) *Ptom) 0 mg PO BID [facility] Last Admin: 06/24/21 10:40 Dose: Not Given Documented by: (Losartan/Hydrochlorothiazide [Losartan-Hctz 100- 25 Mg] *Ptom 1 tab PO DAILY [facility] Last Admin: 06/23/21 08:31 Dose: 1 tab Documented by: Zolpidem Tartrate (Zolpidem 5 Mg Tab) 5 mg PO BEDTIME [facility] Last Admin: 06/25/21 20:59 Dose: 5 mg Documented by: - Exam General: Alert, Oriented HEENT: Pupils Equal Neck: Supple Lungs: Clear to Auscultation Back Exam: Normal Inspection #1 Interpretation EKG Date: 06/25/21 Rhythm: NSR [place]: Normal ST-T: Normal Comparison: NA - No Prior EKG - Patient Data Lab Results Last 24 hrs: Laboratory Results - last 24 hr 06/26/21 06/26/21 06/26/21 Range/Units 06:30 06:30 06:30 WBC 5.4 (3.2-10.1) x10-3/uL RBC 3.41 L (3.90-5.90) x10(6)uL Hgb 11.4 L (12.9-17.7) g/dL Hct 33.0 L (38.3-50.1) % MCV 96.8 (80.8-98.7) fL MCH 33.3 (27.0-33.3) pg MCHC 34.4 (28.7-35.3) g/dL RDW 14.6 (12.4-15.0) % Plt Count 102 L (117-477) x10(3)uL MPV 6.7 (6.7-11.0) fL Neut % (Auto) 58.9 (40.3-71.8) % Lymph % (Auto) 29.9 (15.8-45.3) % [place] % (Auto) 8.9 (5.5-15.2) % Eos % (Auto) 1.7 (0.1-6.8) % Baso % (Auto) 0.6 (0.3-3.8) % Neut # (Auto) 3.2 (1.7-6.9) x10-3/uL Lymph # (Auto) 1.6 (0.5-4.5) x10-3/uL [place] # (Auto) 0.5 (0.0-1.2) x10-3/uL Eos # (Auto) 0.1 (0.0-0.6) x10-3/uL Baso # (Auto) 0.0 (0.0-0.3) x10-3/uL Sodium 135 (135-145) mmol/L Potassium 3.9 (3.5-5.3) mmol/L Chloride 103 (100-110) mmol/L Carbon Dioxide 28 (21-32) mmol/L BUN 27 H D (7-18) mg/dL Creatinine 1.2 (0.70-1.30) mg/dL Est Cr Clr Drug Dosing 53.64 mL/min Estimated GFR (MDRD) 58 L (>60) BUN/Creatinine Ratio 22.5 H (9-20) Glucose 101 (80-116) mg/dL Calcium 7.6 L (8.6-10.2) mg/dL Troponin I 108.8 H* (4.0-60.3) pg/mL Result Diagrams: 06/26/21 06:30 06/26/21 06:30 Sepsis Event Note - Evaluation Sepsis Screening Result: No Definite Risk - Focused Exam Vital Signs: Vital Signs Temp Temp Pulse Pulse Resp BP BP 06/26/21 08:15 97.8 F 81 20 171/103 H 06/26/21 05:00 97.9 F 70 16 154/81 H 06/26/21 01:00 98.3 F 65 16 123/61 Pulse Ox 06/26/21 08:15 97 06/26/21 05:00 96 06/26/21 01:00 97 - Problem List & Annotations (1) SARS-CoV-2 positive SNOMED Code(s): 8855516539535625 Code(s): U07.1 - COVID-19 Status: Acute Current Visit: Yes (2) H/O deep venous thrombosis SNOMED Code(s): 348455061 Code(s): Z86.718 - PERSONAL HISTORY OF OTHER VENOUS THROMBOSIS AND EMBOLISM Status: Acute Current Visit: Yes (3) Factor VIII (functional) deficiency Status: Acute Current Visit: Yes (4) On apixaban therapy SNOMED Code(s): 627097420 Code(s): Z79.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 Status: Acute Current Visit: Yes (5) HLD (hyperlipidemia) SNOMED Code(s): 42425522 Code(s): E78.5 - HYPERLIPIDEMIA, UNSPECIFIED Status: Acute Current Visit: Yes (6) Slurred speech SNOMED Code(s): 165391374 Code(s): R47.81 - SLURRED SPEECH Status: Acute Current Visit: Yes (7) Hypertension SNOMED Code(s): 29092693 Code(s): I10 - ESSENTIAL (PRIMARY) HYPERTENSION Status: Chronic Current Visit: Yes Qualifiers: Hypertension type: primary hypertension Qualified Code(s): I10 - Essential (primary) hypertension (8) Hyponatremia SNOMED Code(s): 97574860 Code(s): E87.1 - HYPO-OSMOLALITY AND HYPONATREMIA Status: Chronic Current Visit: Yes (9) Gout SNOMED Code(s): 56715532 Code(s): M10.9 - GOUT, UNSPECIFIED Status: Chronic Current Visit: Yes (10) Neuropathy SNOMED Code(s): 106374189 Code(s): G62.9 - POLYNEUROPATHY, UNSPECIFIED Status: Chronic Current Visit: Yes (11) COVID-19 SNOMED Code(s): 901845377 Code(s): U07.1 - COVID-19 Status: Acute Current Visit: Yes (12) TENA (acute kidney injury) SNOMED Code(s): 80243109, 90289888 Code(s): N17.9 - ACUTE KIDNEY FAILURE, UNSPECIFIED Status: Acute Current Visit: Yes (13) Insomnia SNOMED Code(s): 626182739 Code(s): G47.00 - INSOMNIA, UNSPECIFIED Status: Acute Current Visit: Yes (14) Constipation SNOMED Code(s): 60584886 Code(s): K59.00 - CONSTIPATION, UNSPECIFIED Status: Acute Current Visit: Yes Qualifiers: Constipation type: slow transit constipation Qualified Code(s): K59.01 - Slow transit constipation - Problem List Review Problem List Initiated/Reviewed/Updated: Yes - My Orders Last 24 Hours: My Active Orders 06/25/21 08:47 EKG 12 Lead [EK] Routine 06/26/21 21:00 Zolpidem [Ambien] 10 mg PO BEDTIME 06/27/21 05:11 BASIC METABOLIC PANEL,BMP [CHEM] AM CBC WITH AUTO DIFF [HEME] AM - Plan Plan:: Continue physical therapy, also start senna to help constipation. Increase Ambien to 10 mg at night.
[2021-06-26] MEDS: Allopurinol 300 MG Tab PO SCH (09:40)
[2021-06-26] MEDS: Aspirin 325 MG Tab.EC PO SCH (09:40)
[2021-06-26] MEDS: Apixaban 5 MG Tab PO SCH ×2 (09:40→20:51)
[2021-06-26] MEDS: Sennosides 8.6 MG Tab PO SCH ×3 (09:40→21:05)
[2021-06-26] MEDS: atorvaSTATin 40 MG Tab PO SCH (20:52)
[2021-06-26] MEDS ORDERED: Zolpidem 10 MG Tab PO SCH (21:00)
[2021-06-27] MEDS: Apixaban 5 MG Tab PO SCH (08:53)
[2021-06-27] MEDS: Aspirin 325 MG Tab.EC PO SCH (08:54)
--- NOTE | 2021-06-28 07:09 | DISCH ---
DISCHARGE DATE: 06/27/2021 REASON FOR ADMISSION: 1. Speech disturbance and weakness, rule out stroke. 2. COVID-19 infection. DISCHARGE DIAGNOSES: 1. Stroke ruled out. 2. COVID-19 infection. 3. Peripheral neuropathy. 4. Generalized debility and weakness. BRIEF HISTORY: An 81-year-old, who was brought to the ER with weakness, global, along with speech disturbance. MRI later revealed no acute stroke noted. He was tested positive incidentally for COVID-19 on admission. He expressed some weakness, had decreased appetite and fatigue, treated with bamlanivimab infusion and improved dramatically; however, his strength is still weak and needs rehab. He does have a history of gait disturbance, multiple falls at home, and will need physical therapy before disposition. During the hospital stay, he had constipation, and insomnia. Initially tried Ambien with no relief. I will discharge him to swing bed and try trazodone. I spent more than 35 minutes in the discharge of the patient. /[id number] JAMES/JATIN
== END 2021-06-27 09:00 | disposition swing bed (61) | DRG 178 ==
LOC: FB.ED 12:09 → FB.MS 14:53 → OBSVTOIN 06-23 09:20
PROVIDERS: ADMIT Family Medicine; ATTEND Family Medicine
PROC: XW033F6 Introduction of Bamlanivimab Monoclonal Antibody into Peripheral Vein, Percutaneous Approach, New Technology Group 6 (ICD-10-PCS; principal; 2021-06-23)
PROC: 8E0ZXY6 Isolation (ICD-10-PCS; 2021-06-23)
DX: G45.9 Transient cerebral ischemic attack, unspecified (principal); U07.1 COVID-19; E87.1 Hypo-osmolality and hyponatremia; G62.9 Polyneuropathy, unspecified; I69.312 Visuospatial deficit and spatial neglect following cerebral infarction; K59.00 Constipation, unspecified; Z66 Do not resuscitate; G47.00 Insomnia, unspecified; I48.91 Unspecified atrial fibrillation; H54.7 Unspecified visual loss; E78.00 Pure hypercholesterolemia, unspecified; I10 Essential (primary) hypertension; K21.9 Gastro-esophageal reflux disease without esophagitis; M10.9 Gout, unspecified; E66.9 Obesity, unspecified; Z85.828 Personal history of other malignant neoplasm of skin; Z90.89 Acquired absence of other organs; Z98.41 Cataract extraction status, right eye; R47.81 Slurred speech; Z86.718 Personal history of other venous thrombosis and embolism; N17.9 Acute kidney failure, unspecified; D68.51 Activated protein C resistance; E78.5 Hyperlipidemia, unspecified; Z98.42 Cataract extraction status, left eye; Z86.19 Personal history of other infectious and parasitic diseases; Z79.01 Long term (current) use of anticoagulants; Z88.0 Allergy status to penicillin; Z79.899 Other long term (current) drug therapy; Z86.73 Personal history of transient ischemic attack (TIA), and cerebral infarction without residual deficits; Z87.891 Personal history of nicotine dependence; Z79.82 Long term (current) use of aspirin; Z20.822 Contact with and (suspected) exposure to COVID-19; Z68.29 Body mass index [BMI] 29.0-29.9, adult
CPT/HCPCS: 36415 ×2; 70450; 70496; 70498; 70551; 71045; 80048; 80053; 80061; 84484; 85025; 85610; 85730; 87804 ×2; 99285; A9270 ×17; Q0245 ×2; Q9967; U0002; 83880; 93005; 97110-GP; 97116-GP; 97161-GP; 97165-GO; 97530-GO; 97535-GO; G0378; J7030; M0245

== ENCOUNTER 2021-06-27 08:26 | Inpatient (IN) | payer MEDICARE, BC ==
--- NOTE | 2021-06-27 09:29 | PCM.HP.2 ---
H&P History of Present Illness - General Date of Service: 06/27/21 Admit Problem/Dx: Admission Diagnosis/Problem Admission Diagnosis/Problem Weakness Source of Information: Patient History Limitations: Reports: No Limitations - History of Present Illness Initial Comments - Free Text/Narative: Family is an 81-year-old male from his own home who presented to the ED with weakness, initially thought to be stroke. Was admitted to the choroid units having tested positive incidentally. CT and MRI ruled out stroke, but he continued to be very weak possibly due to the cough. He does also history of peripheral neuropathy, has been using a walker at home, and has had multiple falls. Is being admitted to swing bed for rehabilitation. While in the hospital acute setting, he of dehydration and acute renal failure, antihypertensive was stopped and he was given some fluids with marked improvement of his creatinine kidney function. 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, poor vision R eye Cardiovascular History: Reports: Afib, Blood Clots/VTE/DVT, High Cholesterol, Hypertension Gastrointestinal History: Reports: GERD Musculoskeletal History: Reports: Fracture, Gout Other Musculoskeletal History: R lower leg Neurological History: Reports: CVA 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 Endocrine/Metabolic History: Reports: Obesity/BMI 30+ Hematologic History: Reports: Anticoagulation Therapy, Other (See Below) Other Hematologic History: has had hi iron in past, has had autologous blood taken Oncologic (Cancer) History: Reports: Basal Cell Carcinoma, Squamous Cell Carcinoma Other Oncologic History: L arm skin CA - Infectious Disease History Infectious Disease History: Reports: Chicken Pox, Measles, Mumps, Novel Coronavirus - Past Surgical History Head Surgeries/Procedures: Reports: None HEENT Surgical History: Reports: Cataract Surgery, Tonsillectomy Other HEENT Surgeries/Procedures: bilat cataract GI Surgical History: Reports: Colonoscopy Musculoskeletal Surgical History: Reports: None Oncologic Surgical History: Reports: Other (See Below) Other Oncologic Surgeries/Procedures: L arm biopsy Social & Family History - Family History Family Medical History: No Pertinent Family History - Caffeine Use Caffeine Use: Reports: Coffee H&P Review of Systems - Review of Systems: Review Of Systems: Comprehensive ROS is negative, except as noted in HPI. 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 OF 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 Status: Acute Current Visit: No (6) Hypertension SNOMED Code(s): 85021167 ICD Code: I10 - ESSENTIAL (PRIMARY) HYPERTENSION Status: Chronic Current Visit: No Qualifiers: (7) Neuropathy SNOMED Code(s): 663670368 ICD Code: G62.9 - POLYNEUROPATHY, UNSPECIFIED Status: Chronic Current Visit: No (8) Weakness SNOMED Code(s): 93745089 ICD Code: R53.1 - WEAKNESS Status: Acute Current Visit: Yes Problem List Initiated/Reviewed/Updated: Yes Orders Last 24hrs: Active Orders 24 hr Category Date Time Status Patient Status [ADT] Routine ADT 06/27/21 09:24 Ordered Height and Weight [RC] WEEKLY Care 06/27/21 09:24 Ordered Oxygen Therapy [RC] PRN Care 06/27/21 09:24 Ordered VTE/DVT Education [RC] Per Unit Routine Care 06/27/21 09:24 Ordered Vital Signs [RC] PER UNIT ROUTINE Care 06/27/21 09:24 Ordered OT Evaluation and Treatment [CONS] Routine Cons 06/27/21 09:24 Ordered PT Evaluation and Treatment [CONS] Routine Cons 06/27/21 09:24 Ordered Regular Diet [DIET] Diet 06/27/21 Breakfast Ordered Apixaban [Eliquis] Med 06/27/21 21:00 Ordered 2.5 mg PO BID Calcium Phosphate Dibas/Vit D3 [Vitamin H2-Iymzfmd-Tjep Med 06/27/21 21:00 Ordered Tablet] 1 tab PO BID Simethicone Med 06/27/21 13:00 Ordered 80 mg PO QIDPCANDBED allopurinoL [Zyloprim] Med 06/27/21 09:30 Ordered 300 mg PO Q48H atorvaSTATin [Lipitor] Med 06/27/21 21:00 Ordered 40 mg PO BEDTIME traZODone Med 06/27/21 21:00 Ordered 50 mg PO BEDTIME Resuscitation Status Routine Resus Stat 06/27/21 09:24 Ordered Medication Orders Simethicone (Simethicone 80 Mg Tab.Chew) 80 mg PO QIDPCANDBED NORMA Trazodone HCl (Trazodone 100 Mg Tab) 50 mg PO BEDTIME NORMA
[2021-06-27] MEDS: Simethicone 80 MG Tab.Chew PO SCH ×3 (12:26→21:24)
[2021-06-27] MEDS ORDERED: traZODone 50 MG Tab PO SCH (21:00)
[2021-06-27] MEDS: Apixaban 5 MG Tab PO SCH (21:13)
[2021-06-27] MEDS: Calcium Carbonate 500 MG Tablet PO SCH (21:23)
[2021-06-27] MEDS: atorvaSTATin 40 MG Tab PO SCH (21:23)
[2021-06-28] MEDS: Apixaban 5 MG Tab PO SCH ×2 (08:09→20:49)
[2021-06-28] MEDS: Allopurinol 300 MG Tab PO SCH (08:09)
[2021-06-28] MEDS: Calcium Carbonate 500 MG Tablet PO SCH ×2 (08:09→20:50)
[2021-06-28] MEDS: Simethicone 80 MG Tab.Chew PO SCH ×4 (08:09→20:49)
[2021-06-28] MEDS: Temazepam 15 MG Cap PO SCH (20:49)
[2021-06-28] MEDS: atorvaSTATin 40 MG Tab PO SCH (20:49)
[2021-06-29] MEDS: Apixaban 5 MG Tab PO SCH ×2 (08:38→20:43)
[2021-06-29] MEDS: Calcium Carbonate 500 MG Tablet PO SCH ×2 (08:38→20:44)
[2021-06-29] MEDS: Simethicone 80 MG Tab.Chew PO SCH ×4 (08:38→20:44)
[2021-06-29] MEDS: Temazepam 15 MG Cap PO SCH (20:43)
[2021-06-29] MEDS: atorvaSTATin 40 MG Tab PO SCH (20:44)
[2021-06-30] MEDS: Apixaban 5 MG Tab PO SCH ×2 (08:47→21:18)
[2021-06-30] MEDS: Calcium Carbonate 500 MG Tablet PO SCH ×2 (08:47→21:19)
[2021-06-30] MEDS: Simethicone 80 MG Tab.Chew PO SCH ×4 (08:47→21:19)
[2021-06-30] MEDS: Allopurinol 300 MG Tab PO SCH (08:48)
[2021-06-30] MEDS: atorvaSTATin 40 MG Tab PO SCH (21:18)
[2021-06-30] MEDS: Temazepam 15 MG Cap PO SCH (21:19)
[2021-07-01] MEDS: Simethicone 80 MG Tab.Chew PO SCH ×4 (08:34→20:49)
[2021-07-01] MEDS: Apixaban 5 MG Tab PO SCH ×2 (08:34→20:48)
[2021-07-01] MEDS: Calcium Carbonate 500 MG Tablet PO SCH ×2 (08:34→20:49)
--- NOTE | 2021-07-01 10:04 | PCM.PN ---
- General Info Date of Service: 07/01/21 Admission Dx/Problem (Free Text): Admission Diagnosis/Problem Admission Diagnosis/Problem Weakness Subjective Update: Patient states that he feels well except for significant weakness. He states that he is embarrassed that he needs help to stand up Functional Status: Reports: Pain Controlled, Tolerating Diet, Ambulating, Urinating - Review of Systems General: Reports: Weakness HEENT: Reports: No Symptoms Pulmonary: Reports: No Symptoms Cardiovascular: Reports: No Symptoms Gastrointestinal: Reports: No Symptoms Genitourinary: Reports: No Symptoms Musculoskeletal: Reports: No Symptoms Skin: Reports: No Symptoms Neurological: Reports: Difficulty Walking, Weakness Psychiatric: Reports: No Symptoms - Patient Data Vitals - Most Recent: Last Vital Signs Temp 36.7 C 07/01/21 08:00 Pulse 94 07/01/21 08:00 Resp 18 07/01/21 08:00 BP 113/71 07/01/21 08:00 Pulse Ox 97 07/01/21 08:00 Weight - Most Recent: 99.79 kg Med Orders - Current: Current Medications Allopurinol (Allopurinol 300 Mg Tab) 300 mg PO Q48H [facility] Last Admin: 06/30/21 08:48 Dose: 300 mg Documented by: Apixaban (Apixaban 5 Mg Tab) 2.5 mg PO BID [facility] Last Admin: 07/01/21 08:34 Dose: 2.5 mg Documented by: Atorvastatin Calcium (Atorvastatin 40 Mg Tab) 40 mg PO BEDTIME [facility] Last Admin: 06/30/21 21:18 Dose: 40 mg Documented by: Calcium Carbonate/Glycine (Calcium Carbonate 500 Mg Tablet) 500 mg PO BID [facility] Last Admin: 07/01/21 08:34 Dose: 500 mg Documented by: Metoprolol Succinate (Metoprolol Succinate 25 Mg Tab.Er) 25 mg PO DAILY [facility] Simethicone (Simethicone 80 Mg Tab.Chew) 80 mg PO QIDPCANDBED [facility] Last Admin: 07/01/21 08:34 Dose: 80 mg Documented by: Temazepam (Temazepam 15 Mg Cap) 15 mg PO BEDTIME [facility] Last Admin: 06/30/21 21:19 Dose: 15 mg Documented by: Discontinued Medications Trazodone HCl (Trazodone 50 Mg Tab) 50 mg PO BEDTIME [facility] Last Admin: 06/27/21 21:24 Dose: 50 mg Documented by: Comments:: Patient was laying in bed, right lateral, patient was able to sit up on his own and scoot to the edge of the bed but he required minimal help to stand up. He was able to stand up straight and stand for the entire exam, he was a little shaky on his feet - Exam Quality Assessment: Supplemental Oxygen, DVT Prophylaxis General: Alert, Oriented, Cooperative, No Acute Distress HEENT: EOMI Neck: Supple Lungs: Crackles, Wheezing Cardiovascular: Regular Rate, Regular Rhythm GI/Abdominal Exam: Normal Bowel Sounds, Soft, Non-Tender Back Exam: Normal Inspection. No: CVA Tenderness (R), CVA Tenderness (L) Extremities: Pedal Edema Peripheral Pulses: 2+: Radial (L), Radial (R), Dorsalis Pedis (L), Dorsalis Pedis (R) Skin: Warm, Dry Neurological: No New Focal Deficit Psy/Mental Status: Alert, Normal Affect, Normal Mood Sepsis Event Note - Evaluation Sepsis Screening Result: No Definite Risk - Focused Exam Vital Signs: Vital Signs Temp Pulse Resp BP Pulse Ox 07/01/21 08:00 36.7 C 94 18 113/71 97 - Problem List & Annotations (1) Palliative care encounter SNOMED Code(s): 837270531, 640816877 Code(s): Z51.5 - ENCOUNTER FOR PALLIATIVE CARE Status: Acute Current Visit: Yes (2) Weakness SNOMED Code(s): 29887486 Code(s): R53.1 - WEAKNESS Status: Acute Current Visit: Yes (3) Constipation SNOMED Code(s): 85997507 Code(s): K59.00 - CONSTIPATION, UNSPECIFIED Status: Chronic Current Visit: No Qualifiers: (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 Current Visit: No (5) H/O deep venous thrombosis SNOMED Code(s): 623829197 Code(s): Z86.718 - PERSONAL HISTORY OF OTHER VENOUS THROMBOSIS AND EMBOLISM Status: Chronic Current Visit: No (6) HLD (hyperlipidemia) SNOMED Code(s): 91558259 Code(s): E78.5 - HYPERLIPIDEMIA, UNSPECIFIED Status: Chronic Current Visit: No (7) Insomnia SNOMED Code(s): 135919441 Code(s): G47.00 - INSOMNIA, UNSPECIFIED Status: Chronic Current Visit: No (8) On apixaban therapy SNOMED Code(s): 994080505 Code(s): Z79.01 - CARE HOME (CURRENT) USE OF 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 Status: Chronic Current Visit: No (9) SARS-CoV-2 positive SNOMED Code(s): 8362041720080927 Code(s): U07.1 - COVID-19 Status: Acute Current Visit: No (10) Gout SNOMED Code(s): 13951843 Code(s): M10.9 - GOUT, UNSPECIFIED Status: Chronic Current Visit: No (11) Hypertension SNOMED Code(s): 50462042 Code(s): I10 - ESSENTIAL (PRIMARY) HYPERTENSION Status: Chronic Current Visit: No Qualifiers: (12) Neuropathy SNOMED Code(s): 247721207 Code(s): G62.9 - POLYNEUROPATHY, UNSPECIFIED Status: Chronic Current Visit: No - Problem List Review Problem List Initiated/Reviewed/Updated: Yes - My Orders Last 24 Hours: My Active Orders 07/01/21 09:37 RT Incentive Spirometry [RC] ASDIRECTED 07/01/21 09:45 Metoprolol Succinate [Toprol XL] 25 mg PO DAILY - Assessment Assessment:: Continue current treatment for chronic conditions. Continue OT/PT and start incentive spirometry to help recover from COVID-19 infection. Patient has had some mild hypertension and tachycardia, start metoprolol succinate 25 mg daily and reevaluate tomorrow Note that nursing noticed some irregular heartbeat and will perform EKG if it is seen again. Patient's medical record in this electronic medical record shows history of Afib but his [place] medical record does not mention atrial fibrillation. Patient is on Eliquis due to history of DVT and factor V Leiden
[2021-07-01] MEDS: Metoprolol Succinate 25 MG Tab.ER PO SCH (10:45)
[2021-07-01] MEDS: Temazepam 15 MG Cap PO SCH (20:49)
[2021-07-01] MEDS: atorvaSTATin 40 MG Tab PO SCH (20:49)
[2021-07-02] MEDS: Apixaban 5 MG Tab PO SCH ×2 (08:18→20:00)
[2021-07-02] MEDS: Simethicone 80 MG Tab.Chew PO SCH ×4 (08:18→20:01)
[2021-07-02] MEDS: Calcium Carbonate 500 MG Tablet PO SCH ×2 (08:18→20:01)
[2021-07-02] MEDS: Allopurinol 300 MG Tab PO SCH (08:19)
[2021-07-02] MEDS: Metoprolol Succinate 25 MG Tab.ER PO SCH (08:44)
[2021-07-02] MEDS: atorvaSTATin 40 MG Tab PO SCH (20:01)
[2021-07-02] MEDS: Temazepam 15 MG Cap PO SCH (20:05)
[2021-07-03] MEDS: Calcium Carbonate 500 MG Tablet PO SCH ×2 (09:12→20:15)
[2021-07-03] MEDS: Simethicone 80 MG Tab.Chew PO SCH ×4 (09:12→20:15)
[2021-07-03] MEDS: Apixaban 5 MG Tab PO SCH ×2 (09:12→20:13)
[2021-07-03] MEDS: Metoprolol Succinate 25 MG Tab.ER PO SCH (09:12)
[2021-07-03] MEDS: atorvaSTATin 40 MG Tab PO SCH (20:14)
[2021-07-03] MEDS: Temazepam 15 MG Cap PO SCH (20:20)
--- NOTE | 2021-07-04 08:33 | PCM.DCSUM1 ---
Discharge Summary - Hospital Course Free Text/Narrative:: 81-year-old gentleman initially presented to the emergency room with weakness and was thought to maybe have had a stroke. Imaging and test ruled out stroke however the patient did test positive for COVID-19. He was admitted to the Covid unit and treated for Covid infection. He was also given occupational physical therapy. Patient's condition improved and he met his 10-day quarantine and he was transferred to a non-Covid room and continue with OT/PT. Patient has improved to the point where he is being discharged. He is being discharged to [facility] rather than home. His will join him. He will be discharged with home health, OT/PT, and continued medical management. New medication: Patient was found to have tachycardia and mild hypertension. Metoprolol succinate/ER 25 mg daily was added and he has much better control of hypertension and tachycardia has resolved. Continue metoprolol as above. Follow-up with primary care physician. Diagnosis: Stroke: No - Discharge Data Discharge Date: 07/04/21 Discharge Disposition: Home, Self-Care 01 Condition: Fair - Referral to Home Health Date of Face to Face Encounter: 07/04/21 Primary Care Physician: Gatito Torres MD - Discharge Diagnosis/Problem(s) (1) Palliative care encounter SNOMED Code(s): 333897761, 969026500 ICD Code: Z51.5 - ENCOUNTER FOR PALLIATIVE CARE Status: Acute Current Visit: Yes (2) Weakness SNOMED Code(s): 21271430 ICD Code: R53.1 - WEAKNESS Status: Acute Current Visit: Yes (3) Constipation SNOMED Code(s): 73056140 ICD Code: K59.00 - CONSTIPATION, UNSPECIFIED Status: Chronic Current Visit: No Qualifiers: (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 Current Visit: No (5) H/O deep venous thrombosis SNOMED Code(s): 797564465 ICD Code: Z86.718 - PERSONAL HISTORY OF OTHER VENOUS THROMBOSIS AND EMBOLISM Status: Chronic Current Visit: No (6) HLD (hyperlipidemia) SNOMED Code(s): 86704287 ICD Code: E78.5 - HYPERLIPIDEMIA, UNSPECIFIED Status: Chronic Current Visit: No (7) Insomnia SNOMED Code(s): 436279741 ICD Code: G47.00 - INSOMNIA, UNSPECIFIED Status: Chronic Current Visit: No (8) On apixaban therapy SNOMED Code(s): 052632231 ICD Code: Z79.01 - [employer]IST (CURRENT) USE OF 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 Status: Chronic Current Visit: No (9) SARS-CoV-2 positive SNOMED Code(s): 7370189078042134 ICD Code: U07.1 - COVID-19 Status: Acute Current Visit: No (10) Gout SNOMED Code(s): 88845122 ICD Code: M10.9 - GOUT, UNSPECIFIED Status: Chronic Current Visit: No (11) Hypertension SNOMED Code(s): 61359143 ICD Code: I10 - ESSENTIAL (PRIMARY) HYPERTENSION Status: Chronic Current Visit: No Qualifiers: (12) Neuropathy SNOMED Code(s): 746129797 ICD Code: G62.9 - POLYNEUROPATHY, UNSPECIFIED Status: Chronic Current Visit: No - Patient Summary/Data Consults: Consultations 06/27/21 09:24 OT Evaluation and Treatment [CONS] Routine Please Evaluate and Treat. OT Reason for Consult: ADL's This query below is only for informational purposes and is not editable. PT Evaluation and Treatment [CONS] Routine Please Evaluate and Treat. PT Reason for Consult: Ambulation This query below is only for informational purposes and is not editable. - Patient Instructions Diet: Usual Diet as Tolerated Activity: As Tolerated Driving: Do Not Drive - Discharge Plan *PRESCRIPTION DRUG MONITORING PROGRAM REVIEWED*: Not Applicable *COPY OF PRESCRIPTION DRUG MONITORING REPORT IN PATIENT [place]: Not Applicable Prescriptions/Med Rec: Metoprolol Succinate [Toprol XL] 25 mg PO DAILY #30 tab.er Home Medications: Home Meds Apixaban [Eliquis] 2.5 mg BID 06/21/21 [History] Calcium Phosphate Dibas/Vit D3 [Vitamin T4-Asqjsce-Hfoq Tablet] 1 tab BID 06/21/21 [History] allopurinoL [Zyloprim] 300 mg PO Q48H 06/21/21 [History] atorvaSTATin [Lipitor] 40 mg PO BEDTIME 06/21/21 [History] Metoprolol Succinate [Toprol XL] 25 mg PO DAILY #30 tab.er 07/04/21 [Rx] - Discharge Summary/Plan Comment DC Time >30 min.: No Total # of Minutes for Discharge Time: 25 Discharge Summary/Plan Comment: Discharge to [facility] with home health, OT PT. New medication: Metoprolol succinate/CR 25 mg daily Follow-up with primary care physician - General Info Date of Service: 07/04/21 Admission Dx/Problem (Free Text: Admission Diagnosis/Problem Admission Diagnosis/Problem Weakness Subjective Update: Patient states that he has no acute complaints and that he is ready to go to [facility] Functional Status: Reports: Pain Controlled, Tolerating Diet, Ambulating, Urinating - Review of Systems General: Reports: Weakness HEENT: Reports: No Symptoms Pulmonary: Reports: No Symptoms Cardiovascular: Reports: No Symptoms Gastrointestinal: Reports: No Symptoms Genitourinary: Reports: No Symptoms Musculoskeletal: Reports: No Symptoms Skin: Reports: No Symptoms Neurological: Reports: Difficulty Walking, Weakness Psychiatric: Reports: No Symptoms - Patient Data Vitals - Most Recent: Last Vital Signs Temp 37.1 C 07/04/21 07:41 Pulse 70 07/04/21 07:41 Resp 16 07/04/21 07:41 BP 150/70 H 07/04/21 07:41 Pulse Ox 95 07/04/21 07:41 Weight - Most Recent: 106.912 kg Med Orders - Current: Current Medications Allopurinol (Allopurinol 300 Mg Tab) 300 mg PO Q48H [facility] Last Admin: 07/02/21 08:19 Dose: 300 mg Documented by: Apixaban (Apixaban 5 Mg Tab) 2.5 mg PO BID [facility] Last Admin: 07/03/21 20:13 Dose: 2.5 mg Documented by: Atorvastatin Calcium (Atorvastatin 40 Mg Tab) 40 mg PO BEDTIME [facility] Last Admin: 07/03/21 20:14 Dose: 40 mg Documented by: Calcium Carbonate/Glycine (Calcium Carbonate 500 Mg Tablet) 500 mg PO BID [facility] Last Admin: 07/03/21 20:15 Dose: 500 mg Documented by: Metoprolol Succinate (Metoprolol Succinate 25 Mg Tab.Er) 25 mg PO DAILY [facility] Last Admin: 07/03/21 09:12 Dose: 25 mg Documented by: Simethicone (Simethicone 80 Mg Tab.Chew) 80 mg PO QIDPCANDBED [facility] Last Admin: 07/03/21 20:15 Dose: 80 mg Documented by: Temazepam (Temazepam 15 Mg Cap) 15 mg PO BEDTIME [facility] Last Admin: 07/03/21 20:20 Dose: 15 mg Documented by: Discontinued Medications Trazodone HCl (Trazodone 50 Mg Tab) 50 mg PO BEDTIME [facility] Last Admin: 06/27/21 21:24 Dose: 50 mg Documented by: Comments:: Patient standing next to bedside chair preparing to sit down, using his walker for assistance. Patient was able to stand during the entire interview and physical exam - Exam Quality Assessment: Reports: Supplemental Oxygen, DVT Prophylaxis General: Reports: Alert, Oriented, Cooperative, No Acute Distress HEENT: Reports: EOMI Neck: Reports: Supple Lungs: Reports: Crackles, Wheezing Cardiovascular: Reports: Regular Rate, No Murmurs GI/Abdominal Exam: Normal Bowel Sounds, Soft, Non-Tender Back Exam: Reports: Normal Inspection Extremities: Pedal Edema Skin: Reports: Warm, Dry Neurological: Reports: No New Focal Deficit Psy/Mental Status: Reports: Alert, Normal Affect, Normal Mood
[2021-07-04] MEDS: Allopurinol 300 MG Tab PO SCH (08:46)
[2021-07-04] MEDS: Simethicone 80 MG Tab.Chew PO SCH (08:46)
[2021-07-04] MEDS: Metoprolol Succinate 25 MG Tab.ER PO SCH (08:46)
[2021-07-04] MEDS: Calcium Carbonate 500 MG Tablet PO SCH (08:46)
[2021-07-04] MEDS: Apixaban 5 MG Tab PO SCH (08:46)
== END 2021-07-04 10:10 | disposition home health service (06) | DRG 947 ==
LOC: FB.MS 09:01
PROVIDERS: ADMIT Family Medicine; ATTEND Student in an Organized Health Care Education/Training Program
DX: R53.1 Weakness (principal); U07.1 COVID-19; D66 Hereditary factor VIII deficiency; Z51.5 Encounter for palliative care; R00.0 Tachycardia, unspecified; I10 Essential (primary) hypertension; K59.00 Constipation, unspecified; E78.5 Hyperlipidemia, unspecified; G47.00 Insomnia, unspecified; M10.9 Gout, unspecified; G62.9 Polyneuropathy, unspecified; R29.6 Repeated falls; H54.7 Unspecified visual loss; I48.91 Unspecified atrial fibrillation; E78.00 Pure hypercholesterolemia, unspecified; K21.9 Gastro-esophageal reflux disease without esophagitis; E66.9 Obesity, unspecified; Z85.828 Personal history of other malignant neoplasm of skin; Z86.16 Personal history of COVID-19; Z86.19 Personal history of other infectious and parasitic diseases; Z86.718 Personal history of other venous thrombosis and embolism; Z79.01 Long term (current) use of anticoagulants; Z79.899 Other long term (current) drug therapy; Z88.0 Allergy status to penicillin; Z86.73 Personal history of transient ischemic attack (TIA), and cerebral infarction without residual deficits; Z90.89 Acquired absence of other organs; Z98.41 Cataract extraction status, right eye; Z98.42 Cataract extraction status, left eye; Z68.31 Body mass index [BMI] 31.0-31.9, adult
CPT/HCPCS: 94150; 97110-GO; 97110-GP; 97116-GP; 97530-GO; 97530-GP; 97535-GO; A9270-GY

== ENCOUNTER 2022-05-29 17:22 | Emergency (ER) | payer MEDICARE, BC ==
[2022-05-29 18:15] LABS: ESTIMATED GFR 46 mL/min (>60)
== END 2022-05-29 19:47 | disposition home or self-care (01) ==
LOC: FB.ED 17:22
DX: G45.9 Transient cerebral ischemic attack, unspecified (principal); R47.01 Aphasia; R79.82 Elevated C-reactive protein (CRP); R79.89 Other specified abnormal findings of blood chemistry; E87.1 Hypo-osmolality and hyponatremia; N28.9 Disorder of kidney and ureter, unspecified; E78.00 Pure hypercholesterolemia, unspecified; I10 Essential (primary) hypertension; E66.9 Obesity, unspecified; Z68.33 Body mass index [BMI] 33.0-33.9, adult; Z88.0 Allergy status to penicillin; Z79.899 Other long term (current) drug therapy; Z79.01 Long term (current) use of anticoagulants; Z86.16 Personal history of COVID-19; Z20.822 Contact with and (suspected) exposure to COVID-19
CPT/HCPCS: 36415; 70450; 71045; 80053; 81001; 83880; 84484; 85025; 86140; 93005; 93010; 99283; 99285; U0002

== ENCOUNTER 2023-04-14 15:09 | Emergency (ER) | payer MEDICARE, BC ==
[2023-04-14] MEDS ORDERED: 50% Dextrose in Water 50 ML Syringe IVPUSH PRN (15:28)
[2023-04-14] MEDS ORDERED: Insulin Regular, Human 100 Units/ML 3 ML Vial IV ONE (15:28)
[2023-04-14] MEDS ORDERED: Calcium Gluconate 10% 1 GM/10 ML SDV IVPUSH ONE (15:28)
[2023-04-14] MEDS ORDERED: Glucagon,Human Recombinant 1 MG Vial IM PRN (15:28)
[2023-04-14] MEDS ORDERED: Sodium Bicarbonate 8.4% 50 MEQ/50 ML Syringe IVPUSH ONE (15:28)
[2023-04-14] MEDS ORDERED: 50% Dextrose in Water 50 ML Syringe IVPUSH ONE (15:28)
[2023-04-14] MEDS ORDERED: Sodium Chloride 0.9% 1,000 ML IV SCH (15:30)
[2023-04-14] MEDS: Sodium Chloride 0.9% 10 ML Syringe FLUSH PRN ×2 (15:48→16:39)
[2023-04-14 15:50] LABS: BLOOD UREA NITROGEN,BUN 47 mg/dL (7-18); BUN/CREATININE RATIO 24.7 (9-20); CALCIUM 8.8 mg/dL (8.6-10.2); CARBON DIOXIDE,CO2 28 mmol/L (21-32); CHLORIDE,CL 98 mmol/L (100-110); CREATININE 1.9 mg/dL (0.70-1.30); EST CRCL DRUG DOSING (CG) 32.71 mL/min; ESTIMATED GFR 34 mL/min (>60); GLUCOSE RANDOM 115 mg/dL (80-116); SODIUM,NA 132 mmol/L (135-145)
[2023-04-14 15:51] LABS: POTASSIUM,K 6.2 mmol/L (3.5-5.3)
[2023-04-14 18:41] LABS: BLOOD UREA NITROGEN,BUN 43 mg/dL (7-18); BUN/CREATININE RATIO 23.9 (9-20); CALCIUM 8.4 mg/dL (8.6-10.2); CARBON DIOXIDE,CO2 30 mmol/L (21-32); CHLORIDE,CL 101 mmol/L (100-110); CREATININE 1.8 mg/dL (0.70-1.30); EST CRCL DRUG DOSING (CG) 34.52 mL/min; ESTIMATED GFR 37 mL/min (>60); GLUCOSE RANDOM 84 mg/dL (80-116); POTASSIUM,K 5.3 mmol/L (3.5-5.3); SODIUM,NA 134 mmol/L (135-145)
== END 2023-04-14 19:25 | disposition home or self-care (01) ==
LOC: FB.ED 15:09
DX: E87.5 Hyperkalemia (principal); E86.0 Dehydration; N17.9 Acute kidney failure, unspecified; E66.9 Obesity, unspecified; I48.91 Unspecified atrial fibrillation; I10 Essential (primary) hypertension; E78.00 Pure hypercholesterolemia, unspecified; Z86.718 Personal history of other venous thrombosis and embolism; Z86.16 Personal history of COVID-19; Z79.01 Long term (current) use of anticoagulants; Z88.0 Allergy status to penicillin; Z68.33 Body mass index [BMI] 33.0-33.9, adult
CPT/HCPCS: 36415; 80048; 82947; 93005; 96361; 96374; 96375; 99285; J0612; J1815; J3490; J7030

== ENCOUNTER 2023-07-03 21:46 | Emergency (ER) | payer MEDICARE, BC ==
[2023-07-03 22:45] LABS: BASOPHILS PERCENT AUTO 0.5 % (0.3-3.8); EOSINOPHILS PERCENT AUTO 0.4 % (0.1-6.8); HEMATOCRIT 37.6 % (38.3-50.1); HEMOGLOBIN 12.6 g/dL (12.9-17.7); LYMPHOCYTES ABSOLUTE AUTO 0.7 x10-3/uL (0.5-4.5); LYMPHOCYTES PERCENT AUTO 10.7 % (15.8-45.3); MEAN CORPUSCULAR HEMOGLOBIN 33.5 pg (27.0-33.3); MEAN CORPUSCULAR HGB CONC 33.6 g/dL (28.7-35.3); MEAN CORPUSCULAR VOLUME 99.5 fL (80.8-98.7); MEAN PLATELET VOLUME 8.2 fL (6.7-11.0); MONOCYTES ABSOLUTE AUTO 0.7 x10-3/uL (0.0-1.2); MONOCYTES PERCENT AUTO 9.5 % (5.5-15.2); NEUTROPHILS ABSOLUTE AUTO 5.4 x10-3/uL (1.7-6.9); NEUTROPHILS PERCENT AUTO 78.9 % (40.3-71.8); PLATELET COUNT,PLT 112 x10(3)uL (117-477); RED BLOOD CELL COUNT 3.78 x10(6)uL (3.90-5.90); RED CELL DISTRIBUTION WIDTH 14.5 % (12.4-15.0); WHITE BLOOD CELL COUNT,WBC 6.9 x10-3/uL (3.2-10.1)
[2023-07-03 22:54] LABS: BLOOD UREA NITROGEN,BUN 18 mg/dL (7-18); BUN/CREATININE RATIO 13.8 (9-20); CALCIUM 8.2 mg/dL (8.6-10.2); CARBON DIOXIDE,CO2 27 mmol/L (21-32); CHLORIDE,CL 103 mmol/L (100-110); CREATININE 1.3 mg/dL (0.70-1.30); ESTIMATED GFR 54 mL/min (>60); GLUCOSE RANDOM 146 mg/dL (80-116); POTASSIUM,K 3.9 mmol/L (3.5-5.3); SODIUM,NA 137 mmol/L (135-145)
[2023-07-03 22:59] LABS: A/G RATIO 0.7; ALANINE AMINOTRANSFERASE,ALT 29 U/L (12-36); ALBUMIN 2.7 g/dL (3.2-4.6); ALKALINE PHOSPHATASE 126 IU/L (56-112); ASPARTATE AMNIOTRANSFERASE,AST 35 IU/L (5-25); BILIRUBIN TOTAL 0.8 mg/dL (0.1-1.3); PROTEIN TOTAL,TP 6.4 g/dL (6.0-8.0)
== END 2023-07-04 01:45 | disposition home or self-care (01) ==
LOC: FB.ED 21:46
DX: U07.1 COVID-19 (principal); I48.91 Unspecified atrial fibrillation; I12.9 Hypertensive chronic kidney disease with stage 1 through stage 4 chronic kidney disease, or unspecified chronic kidney disease; N18.9 Chronic kidney disease, unspecified; I51.4 Myocarditis, unspecified; E66.9 Obesity, unspecified; Z68.32 Body mass index [BMI] 32.0-32.9, adult; Z86.16 Personal history of COVID-19; Z88.0 Allergy status to penicillin
CPT/HCPCS: 36415; 70450; 71045; 80053; 84484; 85025; 93005; 93010; 99283; 99284

== ENCOUNTER 2024-07-06 11:01 | Emergency (ER) | payer MEDICARE, BC ==
[2024-07-06 11:42] LABS: BASOPHILS ABSOLUTE AUTO 0.1 x10-3/uL (0.0-0.3); BASOPHILS PERCENT AUTO 1.1 % (0.3-3.8); EOSINOPHILS ABSOLUTE AUTO 0.2 x10-3/uL (0.0-0.6); EOSINOPHILS PERCENT AUTO 2.8 % (0.1-6.8); HEMATOCRIT 36.5 % (38.3-50.1); HEMOGLOBIN 12.4 g/dL (12.9-17.7); LYMPHOCYTES ABSOLUTE AUTO 3.1 x10-3/uL (0.5-4.5); LYMPHOCYTES PERCENT AUTO 43.7 % (15.8-45.3); MEAN CORPUSCULAR HEMOGLOBIN 32.6 pg (27.0-33.3); MEAN CORPUSCULAR HGB CONC 33.9 g/dL (28.7-35.3); MEAN CORPUSCULAR VOLUME 96.1 fL (80.8-98.7); MEAN PLATELET VOLUME 7.9 fL (6.7-11.0); MONOCYTES ABSOLUTE AUTO 0.5 x10-3/uL (0.0-1.2); MONOCYTES PERCENT AUTO 7.7 % (5.5-15.2); NEUTROPHILS ABSOLUTE AUTO 3.1 x10-3/uL (1.7-6.9); NEUTROPHILS PERCENT AUTO 44.7 % (40.3-71.8); PLATELET COUNT,PLT 124 x10(3)uL (117-477); RED CELL DISTRIBUTION WIDTH 14.9 % (12.4-15.0)
[2024-07-06 11:44] LABS: BLOOD UREA NITROGEN,BUN 24 mg/dL (7-18); CALCIUM 8.6 mg/dL (8.6-10.2); CARBON DIOXIDE,CO2 23 mmol/L (21-32); CHLORIDE,CL 100 mmol/L (100-110); CREATININE 1.5 mg/dL (0.70-1.30); ESTIMATED GFR 45 mL/min (>60); GLUCOSE RANDOM 116 mg/dL (80-116); POTASSIUM,K 4.7 mmol/L (3.5-5.3); SODIUM,NA 134 mmol/L (135-145)
[2024-07-06 11:50] LABS: A/G RATIO 0.9; ALANINE AMINOTRANSFERASE,ALT 30 U/L (12-36); ALKALINE PHOSPHATASE 104 IU/L (56-112); ASPARTATE AMNIOTRANSFERASE,AST 35 IU/L (5-25); BILIRUBIN TOTAL 0.8 mg/dL (0.1-1.3); PROTEIN TOTAL,TP 6.3 g/dL (6.0-8.0)
== END 2024-07-06 12:41 | disposition home or self-care (01) ==
LOC: FB.ED 11:01
DX: R00.1 Bradycardia, unspecified (principal); I10 Essential (primary) hypertension; E66.9 Obesity, unspecified; Z86.16 Personal history of COVID-19; Z90.89 Acquired absence of other organs; Z86.73 Personal history of transient ischemic attack (TIA), and cerebral infarction without residual deficits; Z88.0 Allergy status to penicillin; Z79.899 Other long term (current) drug therapy
CPT/HCPCS: 70450; 71045; 80053; 85025; 93005; 99285